=== PATIENT | female | born 1965 ===

== ENCOUNTER 2022-11-20 15:39 | Emergency (ER) | payer MEDICAID, OTHER, SELFPAY ==
--- NOTE | ~2022-11-20 | CT_ITS ---
EXAMINATION: CT HEAD WITHOUT CONTRAST CLINICAL INFORMATION: Headache COMPARISON: None available. TECHNIQUE: Contiguous axial imaging was performed from the skull base to vertex without intravenous administration of contrast. This CT examination was performed using dose optimization techniques as appropriate, variously including the following: *Automated exposure control *Adjustment of mA and/or kV according to patient size (this includes techniques or standardized protocols for targeted exams where dose is matched to indication/reason for exam; i.e. extremities or head) *Use of iterative reconstruction technique DLP: 584 mGy-cm FINDINGS: There is no midline shift. There is no mass effect. There is no hemorrhage. The basal cisterns appear patent. The posterior fossa is grossly within normal limits. There is no extra-axial collection. The phillips-white matter differentiation is maintained. The ventricles are within normal limits. Partially visualized sinuses are within normal limits. CT/CT head/brain wo IV con IMPRESSION: Negative acute noncontrast CT of the brain.
[2022-11-20 15:49] VITALS: BP 123/41; BP 141/82; PULSE 53; PULSE 68; RESP 18; TEMP 36.6; O2SAT 100; O2SAT 97; BMI 34.5
--- NOTE | 2022-11-20 17:06 | ED.HA ---
HPI - Headache General Chief Complaint: Headache Stated Complaint: MIGRAINE Time Seen by Provider: 11/20/22 17:05 Source: patient Mode of arrival: EMS Limitations: no limitations History of Present Illness HPI Narrative: 57-year-old female who presents emergency department for evaluation of headache that occurred while she was at work. 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 She states that the headache started gradually and overhead 10 minute. Became severe greater than 10/10. The pain was located behind her eyes. She describes the pain as a throbbing sensation. She had associated nausea and had 3 episodes of vomiting which did improve the pain. She had photophobia but no change in her vision. She states she was feeling very nauseated. The patient try to take a Motrin but was unable to keep the pill down. Patient does have a history of migraine headaches and she states that her migraines usually present as pain in the back of her head so this was an unusual headache for her. The patient was brought to emergency department by ambulance and was given Zofran 4 mg IV with improvement of her nausea. At the time my evaluation she states that her pain is 7/10. She denied fever, chills, rhinorrhea, sore throat, cough, chest pain, shortness of breath, dyspnea on exertion. Related Data Previous Rx's Medication Instructions Recorded metoclopramide HCl 10 mg tablet 10 mg PO Q6H PRN nausea and 11/20/22 (Reglan) vomiting #14 tabs Allergies Allergy/AdvReac Type Severity Reaction Status Date / Time diclofenac Allergy Hives Verified 11/20/22 16:06 Review of Systems Review of Systems: Yes all other systems are reviewed and are negative [facility] Past Medical History [facility] Narrative: Past medical history: Migraines. Surgical history: Appendectomy, cholecystectomy, right oophorectomy, small-bowel obstruction. Social history: She denies tobacco, alcohol and drug use. Social History Social History Alcohol intake: never Smoked in Last 30 Days: No Use of substances other than those prescribed or required for medical reasons: No Advance Directives: No Advance Directives Information Provided: No Patient : No Physical Exam Vital Signs: Vital Signs: Last Vital Signs Temp 97.9 F 11/20/22 15:49 Pulse 51 11/20/22 19:57 Resp 16 11/20/22 19:57 BP 124/56 L 11/20/22 19:57 Pulse Ox 98 11/20/22 19:57 O2 Del Method Room Air 11/20/22 19:57 BMI result Body Mass Index 34.5 Const: General: cooperative and no acute distress Orientation/consciousness: oriented to person and oriented to place Limitations: no limitations HEENT: Head: Yes normal to inspection, Yes normocephalic and Yes atraumatic Ears: external ears normal General nose exam: Normal external nose present Face and sinus: Yes normal facial exam Mouth: Normal oral and palatal mucosa present Throat: Yes posterior oropharynx normal Eyes: General: appearance normal, both eyes and all related structures Pupils: Equal, round and reactive pupils present Neck: Neck: Yes normal visual inspection, Yes no lymphadenopathy, Yes trachea midline and Yes supple Chest: Chest palpation & inspection: normal inspection of the chest and normal palpation of entire chest wall Resp: Effort & Inspection: normal respiratory effort and able to speak in complete sentences Auscultation: clear to auscultation bilaterally Cardio: Rate: regular rate Rhythm: regular rhythm Heart sounds: S1 normal heart sound present, S2 normal heart sound present and no murmurs GI: Inspection: Yes normal to inspection Palpation (GI): Soft to palpation, nontender and no guarding Auscultation: normal bowel sounds : General: Yes no CVA tenderness Back/Spine/Pelvis: Back: no CVA tenderness Skin: General skin exam: no rashes or lesions noted Neuro: General: oriented to person and oriented to place Cranial nerves: Yes CN's II-XII intact bilaterally and Yes Equal, round and reactive pupils present Cognition (Neuro): normal cognition Motor exam (neuro): 5/5 motor strength present throughout Extrem: General: Yes normal to inspection Psych: Appearance: grossly normal Speech and movement: Normal speech and movement present Affect: normal affect Attitude: cooperative Thought process: Normal thought process present Thought content: Normal thought content present Medications Administered Discontinued Medications Generic Name Dose Route Start Last Admin Trade Name Freq PRN Reason Stop Dose Admin Diphenhydramine HCl 50 mg 11/20/22 17:07 11/20/22 17:48 Diphenhydramine Hcl 50 Mg/Ml Vial IVPUSH 11/20/22 17:08 50 mg ONCE STA Administration Sodium Chloride 1,000 mls @ 999 mls/hr 11/20/22 17:07 11/20/22 19:30 Ns IV 11/20/22 18:07 Infused .Q1H1M STA Infusion Metoclopramide HCl 10 mg 11/20/22 17:07 11/20/22 17:51 Metoclopramide Hcl 10 Mg/2 Ml Vial IVPUSH 11/20/22 17:08 10 mg ONCE STA Administration Medical Decision Making Medical Decision Making [facility] Narrative: 57-year-old female with a history of migraine headaches who presents emergency department for evaluation of gradual onset of headache that occurred prior to being transported to the emergency department by ambulance. The headache is different from her usual migraine headache and she describes the pain is a throbbing sensation behind her eyes which was greater than 10/10, associated with nausea, vomiting, dizziness and photophobia. Patient did get improvement of her pain and nausea with Zofran 4 mg IV given by the paramedics. At the time my evaluation the patient's headache was 7/10 intensity. I ordered the following evaluation: CBC, CMP, PT/INR, PTT, CT scan of the brain without IV contrast. Patient's headache and nausea will be treated with Reglan 10 mg IV, Benadryl 50 mg IV, Toradol 15 mg IV. Patient also received normal saline IV x1 L. 2159: Patient's headache resolved with the above treatment Patient CT scan of the brain revealed no acute process which is reassuring Patient patient's headache is most likely due to a migraine variant. She was started on the following regimen: Reglan 10 mg, Benadryl 50 mg, Excedrin migraine 2 tabs every 6 hours as needed for pain She given printed and verbal instructions. She was given a work note. She was discharged home Differential Diagnosis Differential Diagnoses: The differential diagnosis associated with the presentation includes Differential diagnosis includes but is not limited to acute migraine headache, acute cerebral bleed, headache, temporal arteritis Admission/Observation Consideration of admission/observation: Escalation of care including admission/observation considered Lab Data My interpretation patient's laboratory evaluation is as follows: CBC, CMP 11/20/22 17:46 11/20/22 17:46 Labs: Lab Results 11/20/22 11/20/22 11/20/22 Range/Units 17:46 17:46 17:46 WBC 8.7 (4.8-10.8) X10*3/uL RBC 4.49 (4.20-5.50) X10*6/uL Hgb 12.7 (12.0-16.0) g/dl Hct 38.8 (37.0-47.0) % MCV 86.4 (80.0-98.0) fL MCH 28.3 (27.0-33.0) pg MCHC 32.7 (31.0-35.0) g/dl RDW 12.5 (11.0-16.0) % Plt Count 195 (160-400) X10*3/uL MPV 11.7 (9.4-12.3) fL Immature Gran % (Auto) 0.2 (0.0-0.4) % Neut % (Auto) 76.1 H (45-73) % Lymph % (Auto) 18.0 L (20-40) % [place] % (Auto) 5.2 (2-11) % Eos % (Auto) 0.2 (0-4) % Baso % (Auto) 0.3 (0-2) % Lymph # (Auto) 1.6 (1.2-4.9) X10*3/uL [place] # (Auto) 0.5 (0.1-1.2) X10*3/uL Eos # (Auto) 0.0 (0.0-0.4) X10*3/uL Baso # (Auto) 0.0 (0.0-0.2) X10*3/uL Abs Immat Gran (auto) 0.02 (0.00-0.03) X10*3/uL Absolute Neuts (auto) 6.6 (2.0-8.3) x10*3/uL Absolute Nucleated RBC 0.000 (0.0-0.012) X10*3/uL Nucleated RBC % (auto) 0.0 (0.0-0.2) /100WBC PT 11.9 (11.1-13.3) SEC INR 1.0 (0.9-1.1) APTT 28.8 (26.0-36.4) SEC Sodium 140 (135-145) mmol/L Potassium 4.1 (3.3-5.1) mmol/L Chloride 108 (96-108) mmol/L Carbon Dioxide 22 (22-29) mmol/L Anion Gap 14 (12-20) BUN 12 (9-16) mg/dL Creatinine 0.71 (0.5-1.4) mg/dL Estim Creat Clear Calc 100.8 Estimated GFR > 60 Random Glucose 106 (60-115) mg/dL Calcium 9.0 (8.4-10.2) mg/dL Total Bilirubin 0.5 (0.0-1.0) mg/dL AST 19 (5-31) U/L ALT 13 (0-31) U/L Alkaline Phosphatase 92 (39-117) U/L Total Protein 7.3 (6.5-8.0) g/dL Albumin 3.7 (3.5-5.0) g/dL Independent Interpretation I performed an independent interpretation of an: CT Scan Interpretation: My independent interpretation patient's CT scan of the brain is as follows: No acute process. Radiology Impression Discussion of test interpretation with radiology: I have reviewed the radiologist's reading. Radiologist Impression: CT head/brain wo IV con IMPRESSION: Negative acute noncontrast CT of the brain. Dictated By:Charlie Gr MD Discharge Plan Discharge Clinical Impression: Headache Patient Disposition: Home, Self-Care Instructions: Acute Headache (ED) Additional Instructions: Your blood work was normal pain The CT scan of your brain revealed no abnormalities which is very reassuring Your symptoms are consistent with a variation of your migraine syndrome I want you to take the following 3 medications together every 6 hours as needed for headache, nausea or vomiting. Reglan (metoclopramide) in 10 mg, 1 pill Benadryl 25 mg, 2 pills Excedrin migraine, 2 pills. After you take these medications, lie down in a dark quiet room and try to fall asleep. These medications will make you sleepy, do not drive or work after taking these medications. Follow-up with your doctor in 2 days. Please return to the emergency department if your symptoms get worse or if you develop any symptoms that are concerning to you. Please see the work note Prescriptions: New metoclopramide HCl [Reglan] 10 mg tablet 10 mg PO Q6H PRN (Reason: nausea and vomiting) Qty: 14 0RF Stand Alone Forms: Work/School Release
[2022-11-20] MEDS: diphenhydrAMINE HCL 50 MG/ML VIAL IVPUSH (17:48)
[2022-11-20] MEDS: Metoclopramide HCl 10 MG/2 ML VIAL IVPUSH (17:51)
[2022-11-20 17:54] LABS: MANUAL DIFF FLAG NO
[2022-11-20 17:58] LABS: Basophils Percent Auto 0.3 % (0-2); Eosinophils Percent Auto 0.2 % (0-4); Hematocrit 38.8 % (37.0-47.0); Hemoglobin 12.7 g/dl (12.0-16.0); Imm Gran Abs Auto 0.02 X10*3/uL (0.00-0.03); Imm Gran Pct Auto 0.2 % (0.0-0.4); Lymphocytes Absolute Auto 1.6 X10*3/uL (1.2-4.9); Mean Corpuscular HGB Conc 32.7 g/dl (31.0-35.0); Mean Corpuscular Hemoglobin 28.3 pg (27.0-33.0); Mean Corpuscular Volume 86.4 fL (80.0-98.0); Mean Platelet Volume 11.7 fL (9.4-12.3); Monocytes Absolute Auto 0.5 X10*3/uL (0.1-1.2); Monocytes Percent Auto 5.2 % (2-11); Neutrophils Absolute Auto 6.6 x10*3/uL (2.0-8.3); Neutrophils Percent Auto 76.1 % (45-73); Platelet Count 195 X10*3/uL (160-400); Red Blood Count 4.49 X10*6/uL (4.20-5.50); Red Cell Distribution Width 12.5 % (11.0-16.0); White Blood Count 8.7 X10*3/uL (4.8-10.8)
[2022-11-20 18:00] LABS: Prothrombin Time 11.9 SEC (11.1-13.3)
[2022-11-20] MEDS: 0.9 % Sodium Chloride 1,000 ML 999 ML IV (18:00)
[2022-11-20 18:02] LABS: Partial Thromboplastin Time 28.8 SEC (26.0-36.4)
[2022-11-20 18:08] LABS: Alanine Aminotransferase 13 U/L (0-31); Albumin Level 3.7 g/dL (3.5-5.0); Alkaline Phosphatase 92 U/L (39-117); Anion Gap 14 (12-20); Aspartate Amino Transferase 19 U/L (5-31); Bilirubin Total 0.5 mg/dL (0.0-1.0); Blood Urea Nitrogen 12 mg/dL (9-16); Carbon Dioxide 22 mmol/L (22-29); Chloride 108 mmol/L (96-108); Creatinine Clr Calc Pharmacy 100.8; Estimated Glomerular Filt Rate > 60; Glucose Random 106 mg/dL (60-115); Potassium 4.1 mmol/L (3.3-5.1); Sodium 140 mmol/L (135-145); Total Protein 7.3 g/dL (6.5-8.0)
--- NOTE | 2022-11-20 18:43 | PC.NURSE ---
Pt A&Ox4, Pt states sudden onset headache 8/10 pressure pain with N/V, dizziness and sensitivity to light. Pt reports feeling slightly better after 3 vomiting episodes prior to arrival. IV line placed, blood work collected and sent to lab.
[2022-11-20 19:57] VITALS: BP 124/56; PULSE 51; RESP 16; O2SAT 98
[2022-11-20 22:00] VITALS: BP 131/69; PULSE 43; RESP 16; TEMP 36.8; O2SAT 99
== END 2022-11-20 22:30 | disposition home or self-care (01) ==
PROVIDERS: Emergency Provider Emergency Medicine Emergency Medical Services
DX: R51.9 Headache, unspecified (principal)
CPT/HCPCS: 36415; 70450; 80053; 85025; 85610; 85730; 96361; 96374; 96375; 99284; 99285; J1200; J2765

== ENCOUNTER 2025-03-07 12:26 | Emergency (ER) | payer MEDICAID, OTHER, SELFPAY ==
--- OUTSIDE RECORDS SUMMARY | 2017-07-11 23:00 | XMS_ITS | Encounter Summary ---
Author Organization [facility] Address [address] [place] [address] Care Team Providers Care Research Staff Member Name Role Phone Unavailable Primary Care Provider Unavailabl e Encounter Details Date Type Department Care Team (Latest Contact Info) Description 07/12/2017 Hospital Encounter [facility] Ext Film [address] [place] [address] Encounter for screening mammogram for malignant neoplasm of breast Social History Tobacco Use Types Packs/Day Years Used Date Smoking Tobacco: Never Smokeless Tobacco: Never Alcohol Use Standard Drinks/Week Comments Never 0 (1 standard drink = 0.6 oz pur e alcohol) Comments No Sex and Gender Information Value Date Recorded Sex Assigned at Female 04/05/2024 8:11 AM EST Legal Sex Female 5:07 PM EST Gender Identity Female 04/05/2024 8:11 AM EST Sexual Orientation Straight 04/05/2024 8: 11 AM EST documented as of this encounter Plan of Treatment Upcoming Encounters Date Type Department Care Team (Late st Contact Info) Description 04/08/2025 7:30 AM EST Office Visit OBGYN Harpal Villegas [address] [place] [address] Mireya Jones, ORALIA [address] [place], [place] [address] 04/10/2025 9:30 AM EST Appointment [facility] Mamm[facility] - [place] [address] [place] [address] documented as of this encounter Procedures Procedure Name Priority Date/Time Associated Diagnosis Comments MG MAMMO DIGITAL SCREENING BILAT Routine 07/12/2017 2:22 PM EDT Encounter for screening mammogram for malignant neoplasm of breast documented in this encounter Results * MG Mammo Digital Screening bilat (07/12/2017 2:22 PM EDT) Narrative SCOTTIE_AF - 05/04/2024 2:23 PM EST This order has been auto-finalized and does not contain a result. Mireya Jones NP IMG BI PROCEDURES Final Result RISPACS_AF documented in this encounter Visit Diagnoses Diagnosis Encounter for screening mammogram for malignant neoplasm of breast documented in this encounter
--- OUTSIDE RECORDS SUMMARY | 2017-07-25 23:00 | XMS_ITS | Encounter Summary ---
Author Organization [facility] Address [address] [place] [address] Care Team Providers Care Line Maintenance Supervisor Name Role Phone Unavailable Primary Care Provider Unavailabl e Encounter Details Date Type Department Care Team (Latest Contact Info) Description 07/26/2017 Hospital Encounter [facility] Ext Film [address] [place] [address] Concern about breast cancer in female without diagnosis Social History Tobacco Use Types Packs/Day Years [...] Visit OBGYN Harpal Villegas [address] [place] [address] Mireya Jones, ORALIA [address] [place] [address] 04/10/2025 9:30 AM EST Appointment [facility] Mammography Harpal Villegas [address] [place] [address] documented as of this encounter Procedures Procedure Name Priority Date/Time Associated Diagnosis Comments MG MAMMO DIGITAL DIAGNOSTIC LEFT Routine 07/26/2017 2:24 PM EDT Concern about breast cancer in female without diagnosis documented in this encounter Results * MG Mammo Digital Diagnostic Left (07/26/2017 2:24 PM EDT) Narrative MARSHAYAYA_AF - 05/04/2024 2:24 PM EST This order has been auto-finalized and does not contain a result. Mireya Jones NP IMG BI PROCEDURES Final Result RISPACS_AF documented in this encounter Visit Diagnoses Diagnosis Concern about breast cancer in female without diagnosis documented in this encounter
--- OUTSIDE RECORDS SUMMARY | 2017-07-25 23:05 | XMS_ITS | Encounter Summary ---
Author Organization [facility] Address [address] [place] [address] Care Team Providers Care Clinical Lab Technologist Name Role Phone Unavailable Primary Care Provider Unavailabl e Encounter Details Date Type Department Care Team (Latest Contact Info) Description 07/26/2017 12:05 AM EDT Hospital Encounter [facility] Ext Film [address] [place] [address] Concern about breast cancer in [...] Visit OBGYN Harpal [place]legas [address] [place] [phone] Mireya Jones, ORALIA [address] [facility] [address] [place], [place] [address] 04/10/2025 9:30 AM EST Appointment [facility] Harpal Villegas [address] [place] [address] documented as of this encounter [...]
--- OUTSIDE RECORDS SUMMARY | 2017-07-31 23:00 | XMS_ITS | Encounter Summary ---
Author Organization [facility] Address [address] [place] [address] Care Team Providers Care Photoengraving Supervisor Name Role Phone Unavailable Primary Care Provider Unavailabl e Encounter Details Date Type Department Care Team (Latest Contact Info) Description 08/01/2017 Hospital Encounter [facility] Ext Film [address] [place] [address] Concern about breast cancer in [...] Visit OBGYN Harpal Villegas [address] [place] [address] Mireya Jones NP [address] [place] [address] 04/10/2025 9:30 AM EST Appointment [facility] Mammography Harpal Villegas [address] [place] [address] documented as of this encounter [...]
--- NOTE | ~2025-03-07 | XR_ITS ---
EXAMINATION: X-ray left hand X-ray left wrist CLINICAL INFORMATION: Fall. Right fifth finger pain. COMPARISON: None TECHNIQUE: Wrist 4 views. Hand 3 views. FINDINGS: Wrist: No fracture or dislocation. No suspicious bony lesion. No significant joint space narrowing or marginal osteophytes. No osseous erosion. No abnormal soft tissue calcification. Hand: Fourth digit: Small displaced ossification along the palmar aspect of the middle phalanx base, suspicious for a fracture. Mild soft tissue swelling. No dislocation. No significant joint space narrowing otherwise. No erosions. No abnormal soft tissue opacification. XR/XR hand LT min 3V IMPRESSION: Mildly displaced intra-articular fracture of the palmar aspect of the base of the fourth middle phalanx. Electronically signed by: Biju Logan MD 03/07/2025 01:21 PM [facility]
--- NOTE | ~2025-03-07 | XR_ITS ---
EXAMINATION: X-ray left hand X-ray left wrist CLINICAL INFORMATION: Fall. Right fifth finger pain. COMPARISON: None TECHNIQUE: Wrist 4 views. Hand 3 views. FINDINGS: Wrist: No fracture or dislocation. No suspicious bony lesion. No significant joint space narrowing or marginal osteophytes. No osseous erosion. No abnormal soft tissue calcification. Hand: Fourth digit: Small displaced ossification along the palmar aspect of the middle phalanx base, suspicious for a fracture. Mild soft tissue swelling. No dislocation. No significant joint space narrowing otherwise. No erosions. No abnormal soft tissue opacification. XR/XR wrist LT min 3V IMPRESSION: Mildly displaced intra-articular fracture of the palmar aspect of the base of the fourth middle phalanx. Electronically signed by: Biju Logan MD 03/07/2025 01:21 PM [facility]
--- NOTE | ~2025-03-07 | XR_ITS ---
EXAMINATION: XR CHEST CLINICAL INFORMATION: Chest pain COMPARISON: None available. TECHNIQUE: 2 views of the chest were obtained. FINDINGS: No significant abnormality is noted involving the heart, lungs, mediastinum, bony thorax or soft tissues. XR/XR chest 2V IMPRESSION: Unremarkable examination. Electronically signed by: Mirna Velez MD 03/07/2025 01:12 PM [facility]
--- NOTE | ~2025-03-07 | CT_ITS ---
CLINICAL HISTORY: Headache CT head without contrast Comparison: Head CT from 11/20/2022 Findings: No acute intracranial hemorrhage. No midline shift or hydrocephalus. No large arterial territorial infarction by CT. Fluid and mucosal thickening of the imaged paranasal sinuses. Right frontal sinuses diminutive. Imaged mastoid air cells are well aerated. No acute skull fracture. Dermal scalp calcifications noted. Previous cataract procedure changes noted. IMPRESSION: No acute intracranial abnormality by CT. This document has been electronically signed by: Demetrio Purdy MD on 03/07/2025 19:24:14
--- NOTE | 2025-03-07 12:28 | ECG_ITS ---
Test Reason : chest pain Blood Pressure : */* mmHG Vent. Rate : 71 BPM Atrial Rate : 71 BPM P-R Int : 138 ms QRS Dur : 78 ms QT Int : 406 ms P-R-T Axes : 36 26 8 degrees QTcB Int : 441 ms Normal sinus rhythm Low voltage QRS T wave abnormality, consider anterior ischemia Abnormal ECG No previous ECGs available Referred By: Raulito Holden Electronically Signed By: LUPIS SOLIS MD
[2025-03-07 12:37] VITALS: BP 150/70; PULSE 60; RESP 18; TEMP 36.3; O2SAT 98; BMI 30.2
--- NOTE | 2025-03-07 12:44 | ED.CHESTPAIN ---
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 Ramirez HPI narrative: 59-year-old female came in for evaluation of multiple symptoms. Patient sustained a mechanical fall 5 days ago patient landed on a rock causing left hand /left 4th finger pain, patient also landed on her chest had bruise after the fall that disappeared now, patient has been getting left-sided chest pain radiating to the left arm, patient is experiencing upper respiratory tract infection symptoms of cough, sneezing. Patient also is complaining of migraine headache that she had history of it, no photophobia, no neck stiffness, no weakness, no numbness, no nausea, no vomiting. Related Data Previous Rx's ?Medication ?Instructions ?Recorded metoclopramide HCl 10 mg tablet 10 mg PO Q6H PRN nausea and 11/20/22 (Reglan) vomiting #14 tabs Allergies Allergy/AdvReac Type Severity Reaction Status Date / Time diclofenac Allergy Hives Verified 03/07/25 12:39 Review of Systems Review of Systems: All other systems are reviewed and are negative Constitutional: Reports as per HPI and Reports no additional constitutional complaints Eyes: Reports as per HPI and Reports no additional eye complaints Reports system reviewed and no additional complaints, except as documented Cardiovascular: Reports as per HPI and Reports no additional cardiovascular complaints Respiratory: Reports as per HPI and Reports no additional respiratory complaints Gastrointestinal: Reports as per HPI and Reports no additional gastrointestinal complaints Genitourinary: Reports no additional female genitourinary complaints Musculoskeletal: Reports no additional musculoskeletal complaints Skin/Breast: Reports system reviewed and no additional complaints, except as docu Psychiatric: Reports no additional psychiatric complaints Endocrine: Reports no additional endocrine complaints Hematologic/Lymphatic: Reports no additional hematologic/lymphatic complaints Allergic/Immunologic: Reports no additional allergic/immunologic complaints Reports system reviewed and no additional complaints, except as documented and Reports Abnormal speech present [facility] Social History Social History Alcohol intake: never Physical Exam Vital Signs: Vital Signs: Last Vital Signs Temp 97.7 F 03/07/25 19:48 Pulse 49 L 03/07/25 19:48 Resp 18 03/07/25 19:48 BP 126/60 03/07/25 19:48 Pulse Ox 99 03/07/25 19:48 O2 Del Method Room Air 03/07/25 19:48 BMI result Body Mass Index 30.2 Vital signs have been reviewed and appear to be correct. Blood pressure elevated. Heart rate normal. Respiratory rate normal. Temperature normal. Oxygen saturation normal. Appearance: Alert. Oriented X3. No acute distress. Head: Normal external exam. Normocephalic. Atraumatic. No Dubose signs noted. No raccoon eyes noted Eyes: PERRLA. EOMI. Conjunctiva and sclera normal. Eyelids normal. ENT: TM's Normal. Pharynx normal. Uvula midline. Moist mucous membranes. No trismus noted. No drooling noted. No muffled voice noted. Neck: Normal inspection. Neck supple. FROM. No adenopathy. Thyroid Normal. No meningeal signs. No neck mass noted. CVS: Normal heart rate and rhythm. Heart sound normal. No murmurs noted. Pulses normal throughout. Respiratory: No respiratory distress. Painless inspiration. Breath sounds normal. No wheezes/rales/rhonchi noted. Reproducible tenderness to the left chest wall with percussion, no step-off, no deformity. No accessory muscle usage noted or decreased air movement noted. Abdomen: Soft and nontender. Bowel sounds normal in all 4 quadrants. No distention noted. No organomegaly noted. No visible injury noted. Back: No CVA tenderness. Full range of motion noted. Skin: Skin warm and dry. Normal skin color. Normal skin turgor. No rashes/lesions/lacerations noted. Extremities: No lower extremity edema. Extremities exhibit normal range of motion. Extremities nontender. Neuro: Oriented X 3. Cranial nerve exam: II-XII are grossly intact No motor deficit. No sensory deficit. Reflexes normal. Appearance: Alert. Oriented X3. No acute distress. Head: Normal external exam. Normocephalic. Atraumatic. No Dubose signs noted. No raccoon eyes noted Eyes: PERRLA. EOMI. Conjunctiva and sclera normal. Eyelids normal. ENT: TM's Normal. Pharynx normal. Uvula midline. Moist mucous membranes. No trismus noted. No drooling noted. No muffled voice noted. Neck: Normal inspection. Neck supple. FROM. No adenopathy. Thyroid Normal. No meningeal signs. No neck mass noted. CVS: Normal heart rate and rhythm. Heart sound normal. No murmurs noted. Pulses normal throughout. Respiratory: No respiratory distress. Painless inspiration. Breath sounds normal. No wheezes/rales/rhonchi noted. Chest nontender. No accessory muscle usage noted or decreased air movement noted. Abdomen: Soft and nontender. Bowel sounds normal in all 4 quadrants. No distention noted. No organomegaly noted. No visible injury noted. Back: No CVA tenderness. Full range of motion noted. Skin: Skin warm and dry. Normal skin color. Normal skin turgor. No rashes/lesions/lacerations noted. Extremities: Left hand exam: Swelling of the left 4th finger with tenderness to palpation no palpable step-off or deformity. Neuro: Mental status: Normal attention, orientation, memory, and affect. Cranial nerves: Pupils are equal, round and reactive to light, EOMI, visual medeiros are fall, face is symmetric, facial sensations are normal. Motor examination normal muscle tone, strength to 4 extremities. DTR are +2, planter's are flexor. Sensory exam; normal coordination, no ataxia, gait stable. Cerebellar exam: [id number] and [id number] is normal. Extrapyramidal system: No tremors, no rigidity with normal facial expressions. Pronator drift not present Course Course Course Narrative: RME: 59 yold female presents to the ED For left sided chest pain started yesterday and left ring finger pain after falling 5 days ago falling unto chest. Patietn also states migraine exacerbation. Reevaluation(s) Reevaluation #1: Chest wall pain after a fall, unremarkable cardiac workup. Left 4th finger fracture patient is already using her own finger splint will discharge to follow-up with orthopedic and Pelvic /migraine completely improved no headache. EKG showing heart rate of 71 on the vital sign patient was bradycardic which likely not an accurate treating. Time: 19:05 Medications Administered Discontinued Medications Generic Name Dose Route Start Last Admin Trade Name Freq PRN Reason Stop Dose Admin Diphenhydramine HCl 25 mg 03/07/25 17:16 03/07/25 17:29 Diphenhydramine Hcl 50 Mg/Ml Vial IVPUSH 03/07/25 17:17 25 mg ONCE ONE Administration Sodium Chloride 1,000 mls @ 999 mls/hr 03/07/25 17:16 03/07/25 18:52 Ns IV 03/07/25 18:16 Infused .Q1H1M ONE Infusion Ketorolac Tromethamine 15 mg 03/07/25 17:19 03/07/25 17:46 Ketorolac Tromethamine 15 Mg/Ml Vial IVPUSH 03/07/25 17:20 15 mg ONCE ONE Administration Ondansetron HCl 4 mg 03/07/25 17:16 03/07/25 17:29 Ondansetron Hcl 4 Mg/2 Ml Vial IVPUSH 03/07/25 17:17 4 mg ONCE ONE Administration Medical Decision Making Differential Diagnosis Differential Diagnoses: The differential diagnosis associated with the presentation includes ( ACS, chest wall contusion, pneumonia, pneumothorax, pleural effusion,) Admission/Observation Consideration of admission/observation: Escalation of care including admission/observation considered Lab Data MDM Lab Attestation statement: I reviewed the patient's lab results. 03/07/25 13:36 03/07/25 13:36 Labs: Lab Results 03/07/25 03/07/25 Range/Units 13:36 17:27 WBC 6.8 (4.8-10.8) X10*3/uL RBC 4.77 (4.20-5.50) X10*6/uL Hgb 13.8 (12.0-16.0) g/dl Hct 41.3 (37.0-47.0) % MCV 86.6 (80.0-98.0) fL MCH 28.9 (27.0-33.0) pg MCHC 33.4 (31.0-35.0) g/dl RDW 12.6 (11.0-16.0) % Plt Count 218 (160-400) X10*3/uL MPV 11.9 (9.4-12.3) fL Immature Gran % (Auto) 0.3 (0.0-0.4) % Neut % (Auto) 64.3 (45-73) % Lymph % (Auto) 26.9 (20-40) % [place] % (Auto) 6.6 (2-11) % Eos % (Auto) 1.3 (0-4) % Baso % (Auto) 0.6 (0-2) % Lymph # (Auto) 1.8 (1.2-4.9) X10*3/uL [place] # (Auto) 0.5 (0.1-1.2) X10*3/uL Eos # (Auto) 0.1 (0.0-0.4) X10*3/uL Baso # (Auto) 0.0 (0.0-0.2) X10*3/uL Abs Immat Gran (auto) 0.02 (0.00-0.03) X10*3/uL Absolute Neuts (auto) 4.4 (2.0-8.3) x10*3/uL Absolute Nucleated RBC 0.000 (0.0-0.012) X10*3/uL Nucleated RBC % (auto) 0.0 (0.0-0.2) /100WBC PT 11.9 (11.2-13.5) SEC INR 1.0 (0.9-1.1) APTT 29.2 (26.7-34.1) SEC D-Dimer High Sensitivty 169 NG/ML Sodium 141 (135-145) mmol/L Potassium 4.3 (3.3-5.1) mmol/L Chloride 111 H (96-108) mmol/L Carbon Dioxide 24 (22-29) mmol/L Anion Gap 10 L (12-20) BUN 11 (9-16) mg/dL Creatinine 0.73 (0.5-1.4) mg/dL Estim Creat Clear Calc 102.3 Estimated GFR > 60 Random Glucose 125 H (60-115) mg/dL Calcium 8.7 (8.4-10.2) mg/dL Total Bilirubin 0.3 (0.0-1.0) mg/dL AST 20 (5-31) U/L ALT 20 (0-31) U/L Alkaline Phosphatase 114 (39-117) U/L Troponin I High Sens < 2.7 < 2.7 (<3.5-17.0) ng/L NT-Pro-B Natriuret Pep 159.8 (<300) pg/mL Total Protein 7.5 (6.5-8.0) g/dL Albumin 4.0 (3.5-5.0) g/dL Independent Interpretation I performed an independent interpretation of an: Plain X-Ray ( chest: No acute intrathoracic pathology. / left hand and left wrist :Mildly displaced intra-articular fracture of the palmar aspect of the base of the fourth middle phalanx. ) Radiology Impression Discussion of test interpretation with radiology: I have reviewed the radiologist's reading. Discharge Plan Discharge Clinical Impression: Chest pain, Migraine, Finger fracture, left Patient Disposition: Home, Self-Care Instructions: Finger Fracture (ED), Migraine Headache (ED) Prescriptions: No Action metoclopramide HCl [Reglan] 10 mg tablet 10 mg PO Q6H PRN (Reason: nausea and vomiting) Qty: 14 0RF Referrals: Vlad Oliva MD [Physician, Vascular Surgery] Jenna Thurston MD [Physician, Hand Surgery] Stand Alone Forms: Work/School Release Interventions: ED Discharge Assessment Last Done: 03/07/25 19:48 Discharge Date/Time: 03/07/25 19:49 Print Language: Moldovan
[2025-03-07 13:41] LABS: MANUAL DIFF FLAG NO
[2025-03-07 13:45] LABS: Hematocrit 41.3 % (37.0-47.0); Hemoglobin 13.8 g/dl (12.0-16.0); Imm Gran Abs Auto 0.02 X10*3/uL (0.00-0.03); Imm Gran Pct Auto 0.3 % (0.0-0.4); Lymphocytes Absolute Auto 1.8 X10*3/uL (1.2-4.9); Mean Corpuscular HGB Conc 33.4 g/dl (31.0-35.0); Mean Corpuscular Hemoglobin 28.9 pg (27.0-33.0); Mean Corpuscular Volume 86.6 fL (80.0-98.0); NRBC Abs Auto 0.000 X10*3/uL (0.0-0.012); NRBC Pct Auto 0.0 /100WBC (0.0-0.2); Platelet Count 218 X10*3/uL (160-400); Red Blood Count 4.77 X10*6/uL (4.20-5.50); White Blood Count 6.8 X10*3/uL (4.8-10.8)
[2025-03-07 13:53] LABS: INTERNATIONAL NORM RATIO 1.0 (0.9-1.1); Prothrombin Time 11.9 SEC (11.2-13.5)
[2025-03-07 13:56] LABS: Partial Thromboplastin Time 29.2 SEC (26.7-34.1)
[2025-03-07 14:01] LABS: Alanine Aminotransferase 20 U/L (0-31); Albumin Level 4.0 g/dL (3.5-5.0); Alkaline Phosphatase 114 U/L (39-117); Anion Gap 10 (12-20); Aspartate Amino Transferase 20 U/L (5-31); Blood Urea Nitrogen 11 mg/dL (9-16); Calcium 8.7 mg/dL (8.4-10.2); Carbon Dioxide 24 mmol/L (22-29); Chloride 111 mmol/L (96-108); Creatinine Clr Calc Pharmacy 102.3; Estimated Glomerular Filt Rate > 60; Potassium 4.3 mmol/L (3.3-5.1); Sodium 141 mmol/L (135-145); Total Protein 7.5 g/dL (6.5-8.0)
[2025-03-07 14:08] LABS: NT Pro B Type Natriuretic Pept 159.8 pg/mL (<300)
[2025-03-07 14:14] LABS: Troponin-I High Sensitivity < 2.7 ng/L (<3.5-17.0)
[2025-03-07 17:21] VITALS: BP 121/69; PULSE 48; RESP 16; O2SAT 100
[2025-03-07 17:27] LABS: D Dimer High Sensitivity 169 NG/ML
[2025-03-07 17:57] LABS: Troponin-I High Sensitivity < 2.7 ng/L (<3.5-17.0)
--- OUTSIDE RECORDS SUMMARY | 2025-03-07 18:53 | XMS_ITS | Encounter Summary ---
Author Organization [facility] Address [address] [place] [address] Care Team Providers Care Lithographic Proofer Name Role Phone Unknown Primary Care Provider [phone] Encounter Details Date Type Department Care Team (Late st Contact Info) Description 10/22/2020 Scanned Document [facility] EMERGENCY MED SCAN Emergency Medicine, Scan Social History Tobacco Use Types Packs/Day Years Used Date Smoking Tobacco: Never Assessed Comments Unknown Sex and Gender Information Value Date Recorded Sex Assigned at Not on file Legal Sex Female 11:19 AM EDT Gender Identity Not on file Sexual Orientation Not on file documented as of this encounter Plan of Treatment Not on file documented as of this encounter Visit Diagnoses Not on filedocumented in this encounter Care Teams Lithographic Proofer Relationship Specialty Start Date End Date Unknown Unknow Provider Address PCP - General 04/25/21 documented as of this encounter
--- OUTSIDE RECORDS SUMMARY | 2025-03-07 18:53 | XMS_ITS | Clinical Summary ---
Author Organization [address] [place] Address [address] [place] [address] Phone Care Team Providers Care Brush Clearing Laborer Name Role Phone Apple Marcum MD Primary Care P rovider Allergies Active Allergy Reactions Criticality Noted Date Comments Diclofenac Hives,Swelling Medium 10/22/2020 Dyclonine Swelling 12/24/2022 Medications No known medications Active Problems Problem Noted Date Diagnosed Date Encounter for gynecological examination without abnormal finding 04/03/2024 Class 1 obesity due to exces s calories without serious comorbidity with body mass index (BMI) of 34.0 to 34.9 in adult 04/03/2024 Surgical menopause 04/03/2024 Chronic bilateral thoracic back pain 01/06/2024 Varicose veins of leg with pain, bilateral 01/05 Chronic constipation 12/24/2022 Overview (04/03/2024): S/p partial obstruction 2018 Migraine without aura and wi thout status migrainosus, not intractable 12/24/2022 Immunizations Immunization Administration Dates Next Due HepB-CpG (Heplisav-B) 18yo and older 06/23/2023, 03/09/2023 Influenza Quadrivalent, 0.5m l, preservative free (Fluarix; FluLaval; Fluzone) ages 6mo and older (Afluria) 3yo and older 06/23/2023,05/14/2021 Influenza trivalent, recombi nant, 0.5mL, preservative free (Flublok) 9yo and older 01/06/2024 Pfizer (ages 12 & older) MARILYN S-CoV-2 COVID-19, mRNA, LNP-S, gloria-sucrose, preservative free 03/16/2021,08/12/2020,07/20/2020 Tdap Tetanus diptheria acell ular pertussis (Boostrix; Adacel) 7yo and older 12/24/2022 Zoster recombinant (Shingrix ) 19yo and older 02/23/2023,12/24/2022 Family History Medical History Relation Name Comments Breast cancer Mother had mastitis Relation Name Status Comments Mother Social History Tobacco Use Types Packs/Day Years Used Date Smoking Tobacco: Never Smokeless Tobacco: Never Tobacco Cessation:Counseling Given: No Alcohol Use Standard Drinks/Week Comments Never 0 (1 standard drink = 0.6 oz pur e alcohol) Comments No Sex and Gender Information Value Date Recorded Sex Assigned at Female 04/05/2024 8:11 AM EST Legal Sex Female 5:07 PM EST Gender Identity Female 04/05/2024 8:11 AM EST Sexual Orientation Straight 04/05/2024 8: 11 AM EST Obstetrics History Para Term AB IAB SAB Ectopic Multiple Livin g Live Births 4 3 2 1 1 2 2 Date Outcome GA Total Labor Labor/2nd/3rd Weight Sex Type Anes PTL Rachelle A1 A5 Name Clin 1985 Term F Vag-S pont Living 1986 Term F Vag-S pont Living 1989 Ectopic 1992 M CS-LT ranv Last Filed Vital Signs Vital Sign Reading Time Taken Comments Blood Pressure 115/70 04/03/2024 7:37 AM EST Pulse 59 04/03/2024 7:27 AM EST Temperature - - Respiratory Rate - - Oxygen Saturation - - Inhaled Oxygen Concentration - - Weight 93.4 kg (206 lb) 04/05/2024 8:43 AM EST Height 167.6 cm (5' 6 ) 04/05/2024 8:43 AM EST Body Mass Index 33.25 04/05/2024 8:43 AM EST Plan of Treatment Upcoming Encounters Date Type Department Care Team (Late st Contact Info) Description 04/08/2025 7:30 AM EST Office Visit [facility] [place] [address] [place] [address] Mireya Jones NP [address] [place] [address] 04/10/2025 9:30 AM EST [facility] [address] [place] [phone] Health Maintenance Due Date Last Done Comments Colorectal Cancer Screening: Colonoscopy 1966 Cervical Cancer Screening: Pap Smear 09/02/1987 Pneumococcal Vaccine: 50+ Years (1 of 1 - PCV) 2016 HIV Screening 03/12/2024 Social Influencers of Health Screening 03/12/2024 Depression Screening 04/25/2024 COVID-19 Vaccine ( season) 2024 06/23/2023, 03/16/2021, 08/12/2020, Additional history exists Influenza Vaccine (#1) 2024 , 06/23/2023, 05/14/2021 Breast Cancer Screening 04/05/2026 04/05/20 24, 07/26/2017, 07/12/2017 Cholesterol Screening (Lipid Panel) 12/25/2027 12/24/2022 DTaP,Tdap,and Td Vaccines (2 - Td or Tdap) 12/24/2032 12/24/2022 RSV Immunization Adult Patients (1 - 1-dose 75+ series) 2041 Hepatitis C Screening Completed 12/24/2022 Zoster Vaccines Completed 02/23/2023, 12/24/2022 Hepatitis B Vaccines Completed 06/23/2023, 03/09/20 23 HIB Vaccines Aged Out No longer eligi ble based on patient's age to complete this topic HPV Vaccines Aged Out No longer eligi ble based on patient's age to complete this topic Hepatitis A Vaccines Aged Out No long er eligible based on patient's age to complete this topic IPV Vaccines Aged Out No longer eligi ble based on patient's age to complete this topic MMR Vaccines Aged Out No longer eligi ble based on patient's age to complete this topic Meningococcal ACWY Vaccine Aged Out N o longer eligible based on patient's age to complete this topic Meningococcal B Vaccine Aged Out No l onger eligible based on patient's age to complete this topic RSV Immunization Patients Under 20 months Aged Out No longer eligible based on patient's age to complete this topic Varicella Vaccines Aged Out No longer eligible based on patient's age to complete this topic Procedures Procedure Name Priority Date/Time Associated Diagnosis Comments MG MAMMO DIGITAL SCREENING W CHELY BILAT Routine 04/05/2024 8:48 AM EST Breast cancer screening by mammogram from Last 3 Months or Most Recently Relevant to Health Maintenance Results * MG Mammo Digital Screening w Chely bilat (04/05/2024 8:48 AM EST) Anatomical Region Laterality Modality Breast Bilateral Mammography 05/01/2024 8:11 AM EST Impressions 05/01/2024 8:16 AM EST No mammographic evidence of malignancy. BI-RADS CATEGORY: 2 - BENIGN RECOMMENDATION: Screening bilateral mammogram is recommended in 1 year. The patient will receive a lay summary regarding their personal breast density per current federal guidelines. Exam Location: [facility], [address] [place] [address], [facility], . Report reviewed and signed by : Dr. Juan Hernandez on 05/01/2024 8:16 AM. Workstation Name - [id number] -------- FINAL REPORT -------- Dictated By: Juan Hernandez Dictated Date: 05/01/2024 08:11 ET Assigned Physician: Juan Hernandez Reviewed and Electronically Signed By: Juan Hernandez Signed Date: 05/01/2024 08:16 ET Workstation ID: [id number] Transcribed By: Self Edit Transcribed Date: 05/01/2024 08:11 ET Narrative 05/01/2024 8:16 AM EST EXAM: MG MAMMO DIGITAL SCREENING W CHELY BILAT EXAM DATE: 04/05/2024 8:15 AM HISTORY: Screening. Personal history of benign left breast biopsy. COMPARISON: 07/12/2017 TECHNIQUE: Bilateral digital mammography using tomosynthesis technique was performed in the standard CC and MLO projections. Computer-aided detection was utilized in the interpretation of this examination. TISSUE DENSITY: B - There are scattered areas of fibroglandular density. FINDINGS: Biopsy marker, lower central left breast, middle depth. No suspicious masses, grouped microcalcifications, or areas of architectural distortion are seen. Procedure Note Juan Hernandez MD - 05/01/2024 EXAM: MG MAMMO DIGITAL SCREENING W CHELY BILAT EXAM DATE: 04/05/2024 8:15 AM HISTORY: Screening. Personal history of benign left breast biopsy. COMPARISON: 07/12/2017 TECHNIQUE: Bilateral digital mammography using tomosynthesis technique was performedin the standard CC and MLO projections. Computer-aided detection was utilized in the interpretation of thisexamination. TISSUE DENSITY: B - There are scattered areas of fibroglandular density. FINDINGS: Biopsy marker, lower central left breast, middle depth. No suspicious masses, grouped microcalcifications, or areas ofarchitectural distortion are seen. IMPRESSION: No mammographic evidence of malignancy. BI-RADS CATEGORY: 2 - BENIGN RECOMMENDATION: Screening bilateral mammogram is recommended in 1 year. The patient will receive a lay summary regarding their personal breastdensity per current federal guidelines. Exam Location: [facility], [address] [place] [address], [facility], . Report reviewed and signed by : Dr. Juan Hernandez on 05/01/2024 8:16 AM.Workstation Name - [id number] -------- FINAL REPORT -------- Dictated By: Juan Hernandez Dictated Date: 05/01/2024 08:11 ET Assigned Physician: Juan Hernandez Reviewed and Electronically Signed By: Juan Hernandez Signed Date: 05/01/2024 08:16 ET Workstation ID: [id number] Transcribed By: Self Edit Transcribed Date: 05/01/2024 08:11 ET us Mireya Jones NP IMG BI PROCEDURES Final Result from Last 3 Months or Most Recently Relevant to Health Maintenance [place] [address] [address] Care Teams Brush Clearing Laborer Relationship Specialty Start Date End Date Apple Marcum MD [address] [place] [address] PCP - General Family Medicine 10/22/20
--- OUTSIDE RECORDS SUMMARY | 2025-03-07 18:53 | XMS_ITS | Clinical Summary ---
Author Organization [facility] Address [address] [place] [address] Care Team Providers Care Eligibility Counselor Name Role Phone Fran Escalera MD Primary Care Provider Source Comments PLEASE NOTE, if this patient is a minor, it may be UNLAWFUL to discuss sensitive information that is contained in these records (such as FAMILY PLANNING, MENTAL HEALTH or SUBSTANCE ABUSE) with the minor patient's parent or other person without the patient's specific authorization.[facility] Allergies Active Allergy Reactions Criticality Noted Date Comments Diclofenac Hives,Swelling Medium 10/22/2020 Dyclonine Swelling 12/24/2022 Medications acetaminophen (TYLENOL) 500 mg tablet Take 1 Tablet by mouth every 6 (six) hours as needed for pain 90 Tablet 1 5 Active cyclobenzaprin e (FLEXERIL) 5 mg tablet Take 1 Tablet by mouth 3 (three) times daily as needed for muscle spasms 90 Tablet 1 5 Active MISCELLANEOUS MEDICAL SUPPLY MISC by miscellaneous route once daily Bilat carpal tunnel wrist braces. Dx bilat wrist pain. Length of need 99 months 2 Each 1 5 Active Active Problems Problem Noted Date Diagnosed Date Class 1 obesity due to exces s calories without serious comorbidity with body mass index (BMI) of 34.0 to 34.9 in adult 04/03/2024 Varicose veins of leg with pain, bilateral 01/05 Chronic bilateral thoracic back pain 01/06/2024 Migraine without aura and wi thout status migrainosus, not intractable 12/24/2022 Chronic constipation 12/24/2022 Overview (12/24/2022): S/p partial obstruction 2018 Resolved Problems Problem Noted Date Diagnosed Date Resolved Date Class 2 obesity due to exces s calories without serious comorbidity with body mass index (BMI) of 36.0 to 36.9 in adult 12/24/2022 Immunizations Immunization Administration Dates Next Due Flu, Preservative Free 06/23/2023,05/14/2021 Hep B,adult,adjuvanted (HEPLISAV) 06/23/2023, Influenza (FLUBLOK),recombinant,injectable,preservati ve Free 01/06/2024 Pfizer COVID vaccine, COMIRN ATY, phillips cap, 12+ 03/16/2021,08/12/2020,07/20/2020 Pfizer COVID-19 (Comirnaty), Mrna, Lnp-s, Pf, Óscar-sucrose, 30 Mcg/0.3 Ml, 12yr+ 05/18/2024,06/23/2023 TDAP 12/24/2022 ZOSTER VACCINE, RECOMBINANT (SHINGRIX) ,12/24/2022 Social History Tobacco Use Types Packs/Day Years Used Date Smoking Tobacco: Never Passive Smoke Exposure: Never Smokeless Tobacco: Never Tobacco Cessation:Counseling Given: Not Answered Alcohol Use Standard Drinks/Week Comments Never 0 (1 standard drink = 0.6 oz pur e alcohol) Social Connections Answer Date Recorded How often do you feel lonely or isolated from th ose around you? 1 05/18/2024 Financial Resource Strain Answer Date R ecorded Hard to pay for: Food 1 05/18/2024 Stress Answer Date Recorded Do you feel these kinds of stress these days? 1 05/18/2024 Physical Activity Answer Date Recorded Physical Activity 0 12/24/2022 Food Insecurity Answer Date Recorded Hard to pay for: Food 1 05/18/2024 Transportation Needs Answer Date Record ed Hard to pay for: Transportation 05/18/2024 Housing Stability Answer Date Recorded Hard to pay for: Rent/Mortgage payment 05/18/2024 Safety and Environment Answer Date Angelo rded Safety 0 12/24/2022 Utilities Answer Date Recorded Hard to pay for: Utilities 1 05/18 Employment Answer Date Recorded Stress 0 01/05/2024 Comments No Sex and Gender Information Value Date Recorded Sex Assigned at Female 10/06/2022 8:33 AM PDT Legal Sex Female 8:30 AM PDT Gender Identity Female 10/06/2022 8:33 AM PDT Sexual Orientation Straight 10/06/2022 8: 33 AM PDT Last Filed Vital Signs Vital Sign Reading Time Taken Comments Blood Pressure 118/70 05/18/2024 9:59 AM EST Pulse 58 05/18/2024 9:59 AM EST Temperature 36.6 C (97.9 F) 05/18/2024 9:59 AM EST Respiratory Rate 18 05/18/2024 9:59 AM EST Oxygen Saturation 98% 05/18/2024 9:59 AM EST Inhaled Oxygen Concentration - - Weight 95.5 kg (210 lb 9.6 oz) 05/18/2024 9:59 A M EST Height 166 cm (5' 5.35 ) 05/18/2024 9:59 AM EST Body Mass Index 34.67 05/18/2024 9:59 AM EST Plan of Treatment Health Maintenance Due Date Last Done Comments CT Colonography 09/02/2011 FIT/gFOBT 09/02/2011 Fecal DNA 09/02/2011 Flexible Sigmoidoscopy 09/02/2011 Imm-Pneumococcal 50+ (1 of 1 - PCV) 2016 Dental BW 02/21/2024 02/18/2023 Dental Examination 02/21/2024 02/18/2023 Dental Perio Charting 02/21/2024 02/18/2023 Dental Prophy 08/26/2024 08/25/2023, 02/22/2023 [id number] ( season) 2024 05/18/2024, 06/23/2023, 04/29/2022, Additional history exists Imm-Influenza (#1) 2024 01/06/2024, 0 06/23/2023, 05/14/2021 Annual Wellness (Adult): Ind icated (All Coverage) 05/18/2025 05/18/2024, 06/21/2023, 12/24/2022 Anxiety Screening 05/18/2025 05/18/2024 Hypertension Screening (#1) 05/18/2025 Tobacco Screening 05/18/2025 05/18/2024, 12/24/2022 Diabetes Screening 12/24/2025 12/24/2022, 12/24/2022 Lipid Screening 12/24/2025 12/24/2022 Breast Cancer Screening (Mammogram) 04/05/2026 04/05/2024, 01/17/2023 Colonoscopy 12/08/2027 12/07/2017 Colorectal Cancer Screening 12/08/2027 Dental FMX/Pano 02/21/2028 02/18/2023 Imm-DTaP/Tdap/Td (2 - Td or Tdap) 12/24/2032 023 HIV Screening Completed 12/24/2022 Hepatitis C Screening Completed 12/24/2022 Imm-Zoster, Recombinant Completed 02/23/2023, 12/24 Imm-Hepatitis B Completed 06/23/2023, 03/09/2023 Alcohol and Drug Screen Completed 05/18/19, 01/06/2024, 07/01/2023, Additional history exists Depression Annual Screen Completed 05/18/2024 Procedures Procedure Name Priority Date/Time Associated Diagnosis Comments Full PROPHYLAXIS - ADULT Routine 08/25/2023 10:20 AM EDT Encounter for dental examination Full INTRAORAL - COMP SERIES OF RADIOGRAPHIC IMAGES Routine 02/18/2023 3:00 PM EDT Caries of enamel (incipient) Caries Full COMP ORAL EVALUATION - NEW/ESTABLISHED PATIENT Routine 02/18/2023 3:00 PM EDT Caries of enamel (incipient) Caries MA DIGITAL SCREENING MAMMO BILAT W CAD Routine 01/17/2023 3:00 AM EDT Breast cancer screening by mammogram HIV 1/2 AG & AB W/RFLX (4TH GEN) Routine 12/24/2022 12:58 PM EDT Routine general medical examination at a health care facility HEPATITIS C AB W/RFLX HCV RNA, QT, RT PCR Routine 12/24/2022 12:58 PM EDT Routine general medical examination at a health care facility COMPREHENSIVE METABOLIC PANEL Routine 12/24/2022 12:58 PM EDT Routine general medical examination at a health care facility LIPIDS W RFLX TO DIRECT LDL Routine 12/24/2022 12:58 PM EDT Routine general medical examination at a health care facility from Last 3 Months or Most Recently Relevant to Health Maintenance Results * Mammo Bilat Screening (01/17/2023 3:00 AM EDT) 01/17/2023 3:00 AM EDT Fran Escalera MD IMG MAMMO Edited Resul t - Final * Hep C Antibody with Reflex HCV RNA (12/24/2022 12:58 PM EDT) HEPATITIS C ANTIBODY NON-REACT ARSENIO NON-REACT ARSENIO [facility] Comment: HCV antibody was non-reactive. There is no laboratory evidence of HCV infection. In most cases, no further action is required. However, if recent HCV exposure is suspected, a test for HCV RNA (test code 98033) is suggested. For additional information please refer to http://education.Cubito/faq/VGK78t8 (This link is being provided for informational/ educational purposes only.) Blood Blood / Unknown 12/24/2022 1 2:58 PM EDT 12/24/2022 12:59 PM EDT Narrative [facility] - 12/25/2022 6:10 AM EDT FASTING:UNKNOWN Fran Escalera MD LAB - BLOOD DRAW Final Resul t [facility] [address] [place] [id number], [facility] [address] [phone] * HIV Ag & Ab with Reflex Western Blot (12/24/2022 12:58 PM EDT) HIV AG/AB, 4TH GEN NON-REAC TIVE NON-REAC TIVE [facility] Comment: HIV-1 antigen and HIV-1/HIV-2 antibodies were not detected. There is no laboratory evidence of HIV infection. PLEASE NOTE: This information has been disclosed to you from records whose confidentiality may be protected by state law. If your state requires such protection, then the state law prohibits you from making any further disclosure of the information without the specific written consent of the person to whom it pertains, or as otherwise permitted by law. A general authorization for the release of medical or other information is NOT sufficient for this purpose. For additional information please refer to http://[employer].Cubito/faq/JFI906 (This link is being provided for informational/ educational purposes only.) The performance of this assay has not been clinically validated in patients less than 2 years old. Blood Blood / Unknown 12/24/2022 1 2:58 PM EDT 12/24/2022 12:59 PM EDT Narrative [facility] - 12/25/2022 6:10 AM EDT FASTING:UNKNOWN Fran Escalera MD LAB - BLOOD DRAW Final Resul t [facility] [address] [place] [address], [facility] [address] [place] [phone] * (ABNORMAL) Lipid Panel (with Reflex Direct LDL) (12/24/2022 12:58 PM EDT) CHOLESTEROL, TOTAL 158 <200 mg/dL [facility] HDL CHOLESTEROL 47(L) > OR = 50 mg/dL [facility] TRIGLYCERIDES 93 <150 mg/dL [facility] LDL-CHOLESTEROL 92 99 mg/dL (calc) [facility] Comment: Reference range: <100 Desirable range <100 mg/dL for primary prevention; <70 mg/dL for patients with CHD or diabetic patients with > or = 2 CHD risk factors. LDL-C is now calculated using the William calculation, which is a validated novel method providing better accuracy than the Friedewald equation in the estimation of LDL-C. Sergei SORIA et al. PORSHA. 2013;310(19): 3502-3949 (http://education.Aloqa/faq/LBM924) CHOL/HDLC RATIO 3.4 <5.0 (calc) [facility] NON-HDL CHOLESTEROL 111 <130 mg/dL (calc) [facility] Comment: For patients with diabetes plus 1 major ASCVD risk factor, treating to a non-HDL-C goal of <100 mg/dL (LDL-C of <70 mg/dL) is considered a therapeutic option. Blood Blood / Unknown 12/24/2022 1 2:58 PM EDT 12/24/2022 12:59 PM EDT Narrative [facility] - 12/25/2022 6:10 AM EDT FASTING:UNKNOWN us Fran Escalera MD LAB - BLOOD DRAW Final Resul t [facility] [address] [address], [facility] [address] [place] [address] * CMP (12/24/2022 12:58 PM EDT) GLUCOSE 91 65 - 99 mg/dL [facility] Comment: Fasting reference interval UREA NITROGEN (BUN) 12 7 - 25 mg/dL [facility] CREATININE (blood) 0.70 0.50 - 1.03 mg/dL [facility] EGFR 101 > OR = 60 mL/min/1. 73m2 [facility] BUN/CREATININE RATIO SEE NOTE: [facility] Comment: Not Reported: BUN and Creatinine are within reference range. SODIUM 139 135 - 146 mmol/L [facility] POTASSIUM 4.8 3.5 - 5.3 mmol/L [facility] CHLORIDE 105 98 - 110 mmol/L [facility] CARBON DIOXIDE 30 20 - 32 mmol/L [facility] CALCIUM 9.2 8.6 - 10.4 mg/dL [facility] PROTEIN, TOTAL 7.3 6.1 - 8.1 g/dL [facility] ALBUMIN 3.9 3.6 - 5.1 g/dL [facility] GLOBULIN 3.4 1.9 - 3.7 g/dL (calc) [facility] ALBUMIN/GLOBULI N RATIO 1.1 1.0 - 2.5 (calc) [facility] BILIRUBIN, TOTAL 0.4 0.2 - 1.2 mg/dL [facility] ALKALINE PHOSPHATASE 94 37 - 153 U/L [facility] AST 15 10 - 35 U/L [facility] ALT 12 6 - 29 U/L [facility] Blood Blood / Unknown 12/24/2022 1 2:58 PM EDT 12/24/2022 12:59 PM EDT Narrative [facility] - 12/25/2022 6:10 AM EDT FASTING:UNKNOWN us Fran Escalera MD LAB - BLOOD DRAW Edited Resu lt - Final [facility] [address] [address], [facility] [address] [address] from Last 3 Months or Most Recently Relevant to Health Maintenance Insurance HEALTH SAFETY NET DENTAL MEDICAID HEALTH SAF[employer]Y NET MEDICAID DENTAL Care Teams Eligibility Counselor Relationship Specialty Start Date End Date Fran Escalera MD [address] [place] [id number] PCP - General Internal Medicine 10/06/22
--- OUTSIDE RECORDS SUMMARY | 2025-03-07 18:53 | XMS_ITS | Clinical Summary ---
Author Organization [facility] Address [address] [place] [address] Phone Care Team Providers Care Cleaner Carpet And Upholstery Name Role Phone Fran Escalera MD Primary Care Provider Social History Tobacco Use Types Packs/Day Years Used Date Smoking Tobacco: Never Assessed Education Answer Date Recorded Are you interested in more education? Not on jr e 04/03/2024 Are you concerned about learning? Not on file 04/03/2024 No 04/03/2024 No 04/03/2024 Digital Access Answer Date Recorded No 04/03/2024 No 04/03/2024 Reliable internet access at home? Not on file 04/03/2024 Device with a working camera? Not on file Comments Unknown Sex and Gender Information Value Date Recorded Sex Assigned at Not on file Legal Sex Female 10:06 AM EST Gender Identity Not on file Sexual Orientation Not on file Plan of Treatment Health Maintenance Due Date Last Done Comments Adult Td,Tdap Booster 1966 LIPID PANEL 1966 DEPRESSION SCREENING 1978 SMOKING Hx and SMOKELESS TOB ACCO SCREENING 09/02/1979 HEPATITIS C SCREENING 1984 HIV ONE-TIME SCREENING (18-6 5 YEARS) 1984 PAP SMEAR 09/02/1987 MAMMOGRAM 2006 COLOGUARD 09/02/2011 COLONOSCOPY 09/02/2011 COLORECTAL CANCER SCREENING 09/02/2011 FIT TEST 09/02/2011 FOBT 09/02/2011 SIGMOIDOSCOPY 09/02/2011 VIRTUAL COLONOSCOPY 09/02/2011 PNEUMOCOCCAL VACCINES (50+ y ears) (1 of 1 - PCV) 2016 ZOSTER VACCINES (1 of 2) 2016 INFLUENZA VACCINE (#1) 2024 COVID-19 VACCINE (1 - 2024-2 6 season) 2024 RSV VACCINE (1 - 1-dose 75+ series) 2041 HEPATITIS A VACCINES Aged Out No long er eligible based on patient's age to complete this topic HIB VACCINES Aged Out No longer eligi ble based on patient's age to complete this topic MENINGOCOCCAL VACCINES (ACWY) Aged Out No longer eligible based on patient's age to complete this topic MENINGOCOCCAL VACCINES (B) Aged Out N o longer eligible based on patient's age to complete this topic Medical Devices Not on file Insurance Z2 FULL Z2 [facility] SAFETY NET FULL Member Subscriber Plan / Payer (Ef fective 2024-Present) Name:Jennifer Bill Relation to Subscriber:Self Name:Jennifer Bill Payer ID:Not on file Group ID:Not on file Type:Medicaid Address: [place] [id number] [facility] NET FULL [facility] LIMITED HEALTH SAFETY NET FULL Member Subscriber Plan / Payer (Ef fective 2024-Present) Name:Jennifer Bill Relation to Subscriber:Self Name:Jennifer Bill Payer ID:Not on file Group ID:Not on file Type:Medicaid Address: [place] [id number] [employer] [facility] SAFETY NET FULL [employer] [facility] NET FULL Care Teams Cleaner Carpet And Upholstery Relationship Specialty Start Date End Date Fran Escalera MD [address] [place] [address] PCP - General Internal Medicine 04/03/24 Additional Source Comments The information contained in this document represents components of the legal health record. It is not the complete legal health record.[facility]
--- OUTSIDE RECORDS SUMMARY | 2025-03-07 18:53 | XMS_ITS | Clinical Summary ---
Author Organization [facility] Address [address] [place] [address] Care Team Providers Care Wildlife Technician Name Role Phone Apple Marcum MD Primary Care Provid er Allergies Active Allergy Reactions Criticality Noted Date Comments Diclofenac 10/22/2020 Medications No known medications Active Problems No known active problems Social History Tobacco Use Types Packs/Day Years Used Date Smoking Tobacco: Never Smokeless Tobacco: Never Sex and Gender Information Value Date Recorded Sex Assigned at Female 10/22/2020 4:22 AM EDT Gender Identity Not on file Sexual Orientation Not on file Job Start Date Occupation Industry Not on file Not on file Not on file Last Filed Vital Signs Vital Sign Reading Time Taken Comments Blood Pressure 122/62 10/22/2020 9:50 AM EDT Pulse 77 10/22/2020 9:50 AM EDT Temperature 36.5 C (97.7 F) 10/22/2020 9:50 AM EDT Respiratory Rate 18 10/22/2020 9:50 AM EDT Oxygen Saturation 99% 10/22/2020 9:50 AM EDT Inhaled Oxygen Concentration - - Weight - - Height - - Body Mass Index - - Plan of Treatment Health Maintenance Due Date Last Done Comments Hepatitis B Vaccines (1 of 3 - 3-dose series) 1965 Hepatitis C Screening 1966 Depression Screening 1978 Preventative Health Evaluation 1984 DTap / Tdap / Td (1 - Tdap) 1985 Cervical Cancer Screening (P ap Smear) 09/02/1987 Colon Cancer Screening (Colonoscopy) 09/02/2011 Breast Cancer Screening (Mammogram) 2016 Shingrix-Zoster Vaccine (1 of 2) 2016 COVID-19 Vaccine (2 - 2024-2 6 season) 2024 03/16/2021 Influenza Vaccine (#1) 2024 Pneumococcal Vaccine Aged Out No long er eligible based on patient's age to complete this topic RSV Ped < 20 months Aged Out No longe r eligible based on patient's age to complete this topic Care Teams Wildlife Technician Relationship Specialty Start Date End Date Apple Marcum MD [address] [place] [phone] PCP - General Family Medicine 10/22/20
--- OUTSIDE RECORDS SUMMARY | 2025-03-07 18:53 | XMS_ITS | Clinical Summary ---
Author Organization [facility] Address [address] [place] [address] Care Team Providers Care Baby Nurse Name Role Phone Unknown Primary Care Provider [phone] Allergies Active Allergy Reactions Criticality Noted Date Comments Diclofenac Sodium Hives,Swelling Medium 12/11/2021 Medications magic mouthwash oral suspension (mixture)Indicat ions:Pharyngitis , unspecified etiology Swish and spit 15 mL 4 (four) times a day as needed for mucositis. 1 Bottle 12/11/2021 Active Social History Tobacco Use Types Packs/Day Years Used Date Smoking Tobacco: Never Assessed Comments Unknown Sex and Gender Information Value Date Recorded Sex Assigned at Not on file Legal Sex Female 11:19 AM EDT Gender Identity Not on file Sexual Orientation Not on file Last Filed Vital Signs Vital Sign Reading Time Taken Comments Blood Pressure 141/72 12/11/2021 9:56 AM EDT Pulse 61 12/11/2021 9:56 AM EDT Temperature 37.5 C (99.5 F) 12/11/2021 9:56 AM EDT Respiratory Rate - - Oxygen Saturation 98% 12/11/2021 9:56 AM EDT Inhaled Oxygen Concentration - - Weight 86.2 kg (190 lb) 12/11/2021 9:56 AM EDT Height 159.5 cm (5' 2.8 ) 12/01/2017 9:21 AM EDT Body Mass Index 33.87 12/01/2017 9:21 AM EDT Plan of Treatment Health Maintenance Due Date Last Done Comments Hepatitis C Virus Screening 1965 HIV Screening 09/02/1979 DTaP/Tdap/Td Vaccines (1 - Tdap) 1985 Hepatitis B Vaccines (1 of 3 - 19+ 3-dose series) 1985 Pneumococcal Vaccines 50+ (1 of 1 - PCV) 2016 Zoster (Shingles) Vaccine (1 of 2) 2016 COVID-19 Vaccine (4 - 2024-2 6 season) 2024 03/16/2021, 08/12/2020, 07/20/2020 RSV Vaccine 50 years and old er and Patients (1 - 1-dose 75+ series) 2041 Colonoscopy Discontinued 03/13/2018 Influenza Vaccine Discontinued 01/06/2024, , 05/14/2021 Care Teams Baby Nurse Relationship Specialty Start Date End Date Unknown Unknow Provider Address PCP - General 04/25/21
[2025-03-07 19:19] VITALS: BP 126/60; PULSE 49; RESP 18; TEMP 36.5; O2SAT 99
[2025-03-07 19:48] VITALS: BP 126/60; PULSE 49; RESP 18; TEMP 36.5; O2SAT 99
== END 2025-03-07 19:49 | disposition home or self-care (01) ==
PROVIDERS: Physician Assistant; Emergency Provider Emergency Medicine
DX: S62.605A Fracture of unspecified phalanx of left ring finger, initial encounter for closed fracture (principal); G43.909 Migraine, unspecified, not intractable, without status migrainosus; R07.89 Other chest pain; M79.642 Pain in left hand; R11.0 Nausea; M25.532 Pain in left wrist; R06.02 Shortness of breath; X50.1XXA Overexertion from prolonged static or awkward postures, initial encounter; X50.9XXA Other and unspecified overexertion or strenuous movements or postures, initial encounter; Y93.9 Activity, unspecified; Y92.9 Unspecified place or not applicable; Y99.8 Other external cause status
CPT/HCPCS: 36415; 70450; 71046; 73110; 73130; 80053; 83880; 84484; 85025; 85379; 85610; 85730; 93005; 96361; 96374; 96375; 99285; J1200; J1885; J2405

== ENCOUNTER → 2025-03-07 12:28 | Outpatient (BNV) | payer MEDICAID, SELFPAY | PROVIDERS: Visit Provider Internal Medicine Cardiovascular Disease | DX: R94.31 Abnormal electrocardiogram [ECG] [EKG] (principal); R07.9 Chest pain, unspecified | CPT/HCPCS: 93010 ==

== ENCOUNTER → 2025-03-07 12:44 | Outpatient (BNV) | payer MEDICAID, SELFPAY | PROVIDERS: Visit Provider Radiology Diagnostic Radiology | DX: R51.9 Headache, unspecified (principal); R07.9 Chest pain, unspecified; S62.625A Displaced fracture of middle phalanx of left ring finger, initial encounter for closed fracture; Z04.3 Encounter for examination and observation following other accident | CPT/HCPCS: 70450; 71046; 73110; 73130 ==

== ENCOUNTER 2025-03-18 08:44 | Outpatient (REF) | payer MEDICAID, OTHER, SELFPAY ==
--- OUTSIDE RECORDS SUMMARY | 2017-07-11 23:00 | XMS_ITS | Encounter Summary ---
Author Organization [facility] Address [address] [place] [address] Care Team Providers Care Glaze Maker Name Role Phone Unavailable Primary Care Provider Unavailabl e Encounter Details Date Type Department Care Team (Latest Contact Info) Description 07/12/2017 Hospital Encounter [facility] Ext Film [address] [place] [address] Encounter for screening mammogram for [...] Visit OBGYN Harpal Villegas [address] [place] [address] Mireya Jones, ORALIA [address] [place], [place] [address] 04/10/2025 9:30 AM EST Appointment [facility] Mamm[facility] - [place] [address] [place] [address] documented as of this encounter [...]
--- OUTSIDE RECORDS SUMMARY | 2017-07-25 23:00 | XMS_ITS | Encounter Summary ---
Author Organization [facility] Address [address] [place] [address] Care Team Providers Care Passport Application Examiner Name Role Phone Unavailable Primary Care Provider Unavailabl e Encounter Details Date Type Department Care Team (Latest Contact Info) Description 07/26/2017 Hospital Encounter [facility] Ext Film [address] [place] [address] Concern about breast cancer in [...] Jones, ORALIA [address] [place] [address] 04/10/2025 9:30 AM EST Appointment [facility] Mammography Harpal Villegas [address] [place] [address] documented as of this encounter [...]
--- OUTSIDE RECORDS SUMMARY | 2017-07-25 23:05 | XMS_ITS | Encounter Summary ---
Author Organization [facility] Address [address] [place] [address] Care Team Providers Care Sales Trainer Name Role Phone Unavailable Primary Care Provider Unavailabl e Encounter Details Date Type Department Care Team (Latest Contact Info) Description 07/26/2017 12:05 AM EDT Hospital Encounter [facility] Ext Film [address] [place] [address] Concern about breast cancer in [...] Office Visit OBGYN Harpal [place]legas [address] [place] [phone] Mireya Jones, ORALIA [address] [facility] [address] [place] [address] 04/10/2025 9:30 AM EST Appointment [facility] Harpal Villegas [address] [place] [address] documented as of this encounter Procedures Procedure Name Priority Date/Time Associated Diagnosis Comments US BREAST LIMITED LEFT Routine 07/26/2017 2:25 PM EDT Concern about breast cancer in female without diagnosis documented in this encounter Results * US Breast Limited Left (07/26/2017 2:25 PM EDT) Narrative MARSHAFERCHOCS_AF - 05/04/2024 2:25 PM EST This order has been auto-finalized and does not contain a result. us Mireya Jones NP IMG US PROCEDURES Final Result RISPACS_AF documented in this encounter Visit Diagnoses Diagnosis Concern about breast cancer in female without diagnosis documented in this encounter
--- OUTSIDE RECORDS SUMMARY | 2017-07-31 23:00 | XMS_ITS | Encounter Summary ---
Author Organization [facility] Address [address] [place] [address] Care Team Providers Care Compress Trucker Name Role Phone Unavailable Primary Care Provider Unavailabl e Encounter Details Date Type Department Care Team (Latest Contact Info) Description 08/01/2017 Hospital Encounter [facility] Ext Film [address] [place] [address] Concern about breast cancer in [...] Visit OBGYN Harpal Villegas [address] [place] [address] Mireya Jones NP [address] [place] [address] 04/10/2025 9:30 AM EST Appointment [facility] Mammography Harpal [place] [address] [place] [address] documented as of this encounter Procedures Procedure Name Priority Date/Time Associated Diagnosis Comments MG STEREO PLCMNT BREAST LOC DEV 1ST LES LEFT Routine 08/01/2017 2:26 PM EDT Concern about breast cancer in female without diagnosis documented in this encounter Results * MG Stereo Plcmnt Breast Wire Loc Dev 1st Lesion Left (08/01/2017 2:26 PM EDT) Narrative SCOTTIE_AF - 05/04/2024 2:26 PM EST This order has been auto-finalized and does not contain a result. Miryea Jones NP IMG BI PROCEDURES Final Result RISPACS_AF documented in this encounter Visit Diagnoses Diagnosis Concern about breast cancer in female without diagnosis documented in this encounter
--- NOTE | ~2025-03-18 | XR_ITS ---
EXAMINATION: XR HAND 3 OR MORE VIEWS LEFT HISTORY: M79.642 - Pain in left hand COMPARISON: Comparison is made with the prior examination dated 03/07/2025. FINDINGS: Three views of the left hand are submitted. Osseous mineralization is normal. There are minimally displaced fractures of the palmar aspects of the bases of the 3rd and 4th middle phalanges without change. There is no dislocation. The joint spaces are preserved. The soft tissues are unremarkable. XR/XR hand LT min 3V IMPRESSION: Minimally displaced fractures of the palmar aspects of the bases of the 3rd and 4th middle phalanges. Electronically signed by: Michael Sharma MD 03/18/2025 10:57 AM [facility]
--- OUTSIDE RECORDS SUMMARY | 2025-03-19 09:07 | XMS_ITS | Clinical Summary ---
Author Organization [facility] Address [address] [place] [address] Phone Care Team Providers Care Buttonhole Facer Name Role Phone Fran Escalera MD Primary [...] topic Medical Devices Not on file Insurance * Guarantor: Jennifer Bill Account Type Relation to Patient Date of Phone Billing Address Personal/Family Self [address] [place] [address] [employer] FULL * Guarantor: Jennifer Bill Account Type Relation to Patient Date of Phone Billing Address Personal/Family Self [address] [place] [address] [employer] [facility] SAFETY NET FULL Member Subscriber Plan / Payer (Ef fective 2024-Present) Name:Jennifer Bill Relation to Subscriber:Self Name:Jennifer Bill Payer ID:Not on file Group ID:Not on file Type:Medicaid Address: [place] [id number] [facility] NET F[facility] FULL Member Subscriber Plan / Payer (Ef fective 2024-Present) Name:Jennifer Bill Relation to Subscriber:Self Name:Jennifer Bill Payer ID:Not on file Group ID:Not on file Type:Medicaid Address: [place] [id number] * Guarantor: Jennifer Bill Account Type Relation to Patient Date of Phone Billing Address Personal/Family Self [address] [place] [address] [employer] [facility] SAFET[facility] NET FULL [employer] [facility] NET FULL Care Teams Buttonhole Facer Relationship Specialty Start Date End Date Fran Escalera MD [address] [place] [address] PCP - General Internal Medicine 04/03/24 Additional Source Comments The information contained in this document represents components of the legal health record. It is not the complete legal health record.[facility]
--- OUTSIDE RECORDS SUMMARY | 2025-03-19 09:07 | XMS_ITS | Clinical Summary ---
Author Organization [facility] Address [address] [place] [address] Care Team Providers Care Acetylene Torch Solderer Name Role Phone Apple Marcum MD Primary [...] age to complete this topic Care Teams Acetylene Torch Solderer Relationship Specialty Start Date End Date pAple Marcum MD [address] [place] [phone] PCP - General Family Medicine 10/22/20
--- OUTSIDE RECORDS SUMMARY | 2025-03-19 09:07 | XMS_ITS | Clinical Summary ---
Author Organization [facility] Address [address] [place] [address] Care Team Providers Care Publications Writer Name Role Phone Unknown Primary Care Provider [...] Vaccine Discontinued 01/06/2024, , 05/14/2021 Care Teams Publications Writer Relationship Specialty Start Date End Date Unknown Unknow Provider Address PCP - General 04/25/21
--- OUTSIDE RECORDS SUMMARY | 2025-03-19 09:07 | XMS_ITS | Clinical Summary ---
Author Organization [address] [facility] [address] [facility] Address [address] [facility] [place] [address] Phone Care Team Providers Care Community Relations Police Lieutenant Name Role Phone Apple Marcum MD Primary [...] Office Visit [facility] [place] [address] [place] [address] Mireya Jones NP [address] [place] [address] 04/10/2025 9:[address] [facility] [address] [place] [phone] Health Maintenance Due Date Last Done Comments [...] density per current federal guidelines. Exam Location: [facility], [address] [place] [address], [facility], . Report reviewed and signed by : Dr. Juan Hernandez on 05/01/2024 8:16 AM. Workstation Name - [id number] -------- FINAL REPORT -------- Dictated By: Juan Hernandez Dictated Date: 05/01/2024 08:11 ET Assigned Physician: Juan Hernandez Reviewed and Electronically Signed By: Juan Hernandez Signed Date: 05/01/2024 08:16 ET Workstation ID: [id number] Transcribed By: Self Edit Transcribed Date: 05/01/2024 [...] breastdensity per current federal guidelines. Exam Location: [facility], [address] [place] [address], [facility], . Report reviewed and signed by : Dr. Juan Hernandez on 05/01/2024 8:16 AM.Workstation Name - [id number] -------- FINAL REPORT -------- Dictated By: Juan Hernandez Dictated Date: 05/01/2024 08:11 ET Assigned Physician: Juan Hernandez Reviewed and Electronically Signed By: Juan Hernandez Signed Date: 05/01/2024 08:16 ET Workstation ID: [id number] Transcribed By: Self Edit Transcribed Date: 05/01/2024 08:11 ET us Mireya Jones NP IMG BI PROCEDURES Final Result from Last 3 Months or Most Recently Relevant to Health Maintenance [place] [place] [address] Care Teams Community Relations Police Lieutenant Relationship Specialty Start Date End Date Apple Marcum MD [address] [place] [address] PCP - General Family Medicine 10/22/20
--- OUTSIDE RECORDS SUMMARY | 2025-03-19 09:07 | XMS_ITS | Encounter Summary ---
Author Organization [facility] Address [address] [place] [address] Care Team Providers Care Community Recreation Programmer Name Role Phone Unknown Primary Care Provider [phone] Encounter Details Date Type Department Care Team (Late st Contact Info) Description 10/22/2020 Scanned Document [facility] EMERGENCY MED SCAN Emergency Medicine, Scan [...] on filedocumented in this encounter Care Teams Community Recreation Programmer Relationship Specialty Start Date End Date Unknown Unknow Provider Address PCP - General 04/25/21 documented as of this encounter
== END 2025-03-18 08:45 | disposition home or self-care (01) ==
LOC: HO.HOSX 08:44
DX: S62.625A Displaced fracture of middle phalanx of left ring finger, initial encounter for closed fracture (principal); S62.623A Displaced fracture of middle phalanx of left middle finger, initial encounter for closed fracture; W01.198A Fall on same level from slipping, tripping and stumbling with subsequent striking against other object, initial encounter
CPT/HCPCS: 73130; 99212

== ENCOUNTER 2025-03-18 09:22 | Outpatient (AMB) | payer MEDICAID, SELFPAY ==
--- OUTSIDE RECORDS SUMMARY | 2017-07-11 23:00 | XMS_ITS | Encounter Summary ---
Author Organization [facility] Address [address] [place] [address] Care Team Providers Care Process Engineering Manager Name Role Phone Unavailable Primary Care Provider Unavailabl e Encounter Details Date Type Department Care Team (Latest Contact Info) Description 07/12/2017 Hospital Encounter [facility] Ext Film [address] [place] [address] Encounter for screening mammogram for [...] Visit OBGYN Harpal Villegas [address] [place] [address] Mireya Jones, ORALIA [address] [place], [place] [address] 04/10/2025 9:30 AM EST Appointment [facility] Mammography - [place] [address] [place] [address] documented as of this encounter [...]
--- OUTSIDE RECORDS SUMMARY | 2017-07-25 23:00 | XMS_ITS | Encounter Summary ---
Author Organization [facility] Address [address] [place] [address] Care Team Providers Care Gel Coater Name Role Phone Unavailable Primary Care Provider Unavailabl e Encounter Details Date Type Department Care Team (Latest Contact Info) Description 07/26/2017 Hospital Encounter [facility] Ext Film [address] [place] [address] Concern about breast cancer in [...] Visit OBGYN Harpal Villegas [address] [place] [address] Mireya Jones, ORALIA [address] [place] [address] 04/10/2025 9:30 AM EST Appointment [facility] Mammography Harpal Villegas [address] [place] [address] documented as of this encounter [...]
--- OUTSIDE RECORDS SUMMARY | 2017-07-25 23:05 | XMS_ITS | Encounter Summary ---
Author Organization [facility] Address [address] [place] [address] Care Team Providers Care Burnisher And Bumper Name Role Phone Unavailable Primary Care Provider Unavailabl e Encounter Details Date Type Department Care Team (Latest Contact Info) Description 07/26/2017 12:05 AM EDT Hospital Encounter [facility] Ext Film [address] [place] [address] Concern about breast cancer in [...] Visit OBGYN Harpal [place]leg[place] [address] [place] [phone] Mireya Jones, ORALIA [address] [facility] [address] [place] [address] 04/10/2025 9:30 AM EST Appointment [facility] Harpal Villegas [address] [place] [address] documented as of this encounter [...]
--- OUTSIDE RECORDS SUMMARY | 2017-07-31 23:00 | XMS_ITS | Encounter Summary ---
Author Organization [facility] Address [address] [place] [address] Care Team Providers Care Contract Assistant Name Role Phone Unavailable Primary Care Provider Unavailabl e Encounter Details Date Type Department Care Team (Latest Contact Info) Description 08/01/2017 Hospital Encounter [facility] Ext Film [address] [place] [address] Concern about breast cancer in [...] Visit OBGYN Harpal Villegas [address] [place] [address] Mireya Jones NP [address] [place] [address] 04/10/2025 9:30 AM EST Appointment [facility] Mammography Harpal Villegas [address] [place] [address] documented as of this encounter [...]
--- NOTE | 2025-03-18 09:38 | MHC.OFFVIS ---
Vital Signs 03/18/25 09:39 Height 5 ft 9.29 in Weight 206 lb BMI 30.2 Intake Visit Reasons: FC:LT RF Middle Phalanx Fx, DOI ~ 03/02/25 Intake Note: Jennifer is a 59 year old right hand dominant female who presents today for a Fracture Care visit status post Left Ring Middle Phalanx Fracture, DOI: 03/02/25. Patient presented to [facility] on 03/07/25 reporting she had taken a fall, landing on a rock. At the ED patient was advised to continue use of a finger splint she was already using. Today, patient compais of left ring finger pain on the ulnar aspect of the finger. She has been using a finger splint. She does report some tingling on the volar aspect of her left ring finger. She is taking Tylenol and Ibuprofen with some relief. She denies any new injuries or surgeries to her left hand. Marketing Project Manager Required: Yes Marketing Project Manager Language: Catalyst Plant Supervisor Name: [id number] Henok Allergies diclofenac Allergy (Verified 03/18/25 09:39) Hives HPI HPI FC:LT RF Middle Phalanx Fx, DOI ~ 03/02/25: Details: Jennifer is a 59 year old right hand dominant female who presents today for a Fracture Care visit status post Left Ring Middle Phalanx Fracture, DOI: 03/02/25. Patient presented to [facility] on 03/07/25 reporting she had taken a fall, landing on a rock. At the ED patient was advised to continue use of a finger splint she was already using on the left ring finger, but was not provided with any immobilization for the left middle finger.. Today, patient complains of left ring finger pain on the volar aspect of the finger, primarily at the level of the PIP joint, as well as pain in the same area of the left middle finger. She has been using a finger splint. She does report some tingling on the volar aspect of her left ring finger. She is taking Tylenol and Ibuprofen with some relief. She denies any new injuries or surgeries to her left hand. [facility] Surgical History (Updated 03/18/25 @ 09:43 by JOSE Dimas) History of appendectomy Social History (Updated 03/18/25 @ 09:42 by JOSE Dimas) Alcohol intake: never Patient Tobacco Use Status: Never used Tobacco Current occupational status: employed Current occupation: [employer], rt handed Review of Systems Const All systems reviewed & are unremarkable except as noted in HPI and below Physical Exam Vital Signs: BMI result Body Mass Index 30.2 Extrem Other: Patient is alert, oriented, and in no acute distress. Neuro: Normal sensation of the tips of all digits of the left hand at this time Vascular: Cap refill brisk Pain: Tenderness to palpation noted of the volar PIP joints of the left middle and ring fingers Some discomfort associated with can closed fist with the left hand at the PIP joints of the left middle and ring fingers ROM: With encouragement, patient is able to make a closed fist and extend all digits of the left hand fully Skin: No lacerations or abrasions. General: Mild swelling noted on the volar aspect of the left middle and ring fingers at the level of the PIP joint and middle phalanx No ecchymosis, erythema, or evidence of infection. Psych: Appears grossly normal Affect normal Attitude cooperative Office Procedures AMB Fracture Care Fracture Billing Code: Fracture Billing Code Results Reviewed Results Reviewed: X-rays obtained in the office today and independently reviewed by me, Emile Romero PA-C, demonstrate minimally displaced middle phalanx base avulsion fractures of the left middle and ring fingers. Assessment & Plan Assessment & Plan (1) Closed fracture of middle phalanx of left ring finger: Code(s): S62.625A - Displaced fracture of middle phalanx of left ring finger, initial encounter for closed fracture Category: Medical (2) Fracture of middle phalanx of left middle finger: Code(s): S62.623A - Displaced fracture of middle phalanx of left middle finger, initial encounter for closed fracture Category: Medical Plan 1. Left middle finger middle phalanx avulsion fracture 2. Left ring finger middle phalanx avulsion fracture Date of injury 03/02/2025 Patient is educated about this condition Patient is educated about the typical treatment and recovery course At this time, patient is advised that she should marycruz tape the middle and ring fingers of the left hand together with daytime activities to act as a moving splint for both fractures No further immobilization indicated at this time Patient is advised she can return to work with a 2 lb weight limit in the left hand until follow-up Patient understands this and is amenable to this plan Follow-up in 4 weeks with repeat x-rays for reassessment, sooner with any acute concerns Orders: Orders XR hand LT min 3V Today M79.642 - Pain in left hand Coding Level of Care Code New Pt Level 3 (97872) Diagnoses Closed fracture of middle phalanx of left ring finger S62.625A Fracture of middle phalanx of left middle finger S62.623A CPT Codes Fracture Care - Fracture Billing Code: Fracture Billing Code ([id number])
[2025-03-18 09:39] VITALS: BMI 30.2
--- OUTSIDE RECORDS SUMMARY | 2025-03-18 10:34 | XMS_ITS | Encounter Summary ---
Author Organization [facility] Address [address] [place] [address] Care Team Providers Care Shooter'S Helper Name Role Phone Unknown Primary Care Provider [phone] Encounter Details Date Type Department Care Team (Late st Contact Info) Description 10/22/2020 Scanned Document [facility] EMERGENCY MED SCAN Emergency Medicine, Scan Social [...] on filedocumented in this encounter Care Teams Shooter'S Helper Relationship Specialty Start Date End Date Unknown Unknow Provider Address PCP - General 04/25/21 documented as of this encounter
--- OUTSIDE RECORDS SUMMARY | 2025-03-18 10:34 | XMS_ITS | Clinical Summary ---
Author Organization [facility] Address [address] [place] [address] Care Team Providers Care Inside Sales Recruiter Name Role Phone Apple Marcum MD Primary [...] age to complete this topic Care Teams Inside Sales Recruiter Relationship Specialty Start Date End Date Apple Marcum MD [address] [place] [phone] PCP - General Family Medicine 10/22/20
--- OUTSIDE RECORDS SUMMARY | 2025-03-18 10:34 | XMS_ITS | Clinical Summary ---
Author Organization [address] [facility] [address] [facility] [address] [facility] Address [address] [place] [address] Phone Care Team Providers Care Disability Examiner Name Role Phone Apple Marcum MD Primary [...] Office Visit [facility] [place] [address] [place] [address] Mireya Jones NP [address] [place] [address] 04/10/2025 9:30 AM EST [facility] [address] [place] [phone] Health Maintenance Due Date Last Done Comments [...] density per current federal guidelines. Exam Location: [facility], [address] [place] [address], [facility], . Report reviewed and signed by : Dr. Juan Hernandez on 05/01/2024 8:16 AM. Workstation Name - [id number] -------- FINAL REPORT -------- Dictated By: Juan Hernandez Dictated Date: 05/01/2024 08:11 ET Assigned Physician: Juan Hernandez Reviewed and Electronically Signed By: Juan Hernandez Signed Date: 05/01/2024 08:16 ET Workstation ID: [id number] Transcribed By: Self Edit Transcribed Date: 05/01/2024 [...] breastdensity per current federal guidelines. Exam Location: [facility], [address] [place] [address], [facility], . Report reviewed and signed by : Dr. Juan Hernandez on 05/01/2024 8:16 AM.Workstation Name - [id number] -------- FINAL REPORT -------- Dictated By: Juan Hernandez Dictated Date: 05/01/2024 08:11 ET Assigned Physician: Juan Hernandez Reviewed and Electronically Signed By: Juan Hernandez Signed Date: 05/01/2024 08:16 ET Workstation ID: [id number] Transcribed By: Self Edit Transcribed Date: 05/01/2024 08:11 ET us Mireya Jones NP IMG BI PROCEDURES Final Result from Last 3 Months or Most Recently Relevant to Health Maintenance [place] [address] [place] [address] Care Teams Disability Examiner Relationship Specialty Start Date End Date Apple Marcum MD [address] [place] [address] PCP - General Family Medicine 10/22/20
--- OUTSIDE RECORDS SUMMARY | 2025-03-18 10:35 | XMS_ITS | Clinical Summary ---
Author Organization [facility] Address [address] [place] [address] Phone Care Team Providers Care Sinker Puller Name Role Phone Fran Escalera MD Primary [...] topic Medical Devices Not on file Insurance [employer] FULL [employer] [facility] SAF[facility] NET FULL Member Subscriber Plan / Payer (Ef fective 2024-Present) Name:Jennifer Bill Relation to Subscriber:Self Name:Jennifer Bill Payer ID:Not on file Group ID:Not on file Type:Medicaid Address: [place] [id number] [facility] NET FULL [facility] NET FULL Member Subscriber Plan / Payer (Ef fective 2024-Present) Name:Jennifer Bill Relation to Subscriber:Self Name:Jennifer Bill Payer ID:Not on file Group ID:Not on file Type:Medicaid Address: [place] [id number] [employer] [facility] SAF[facility] NET FULL [employer] [facility] NET FULL Care Teams Sinker Puller Relationship Specialty Start Date End Date Fran Escalera MD [address] [place] [address] PCP - General Internal Medicine 04/03/24 Additional Source Comments The information contained in this document represents components of the legal health record. It is not the complete legal health record.[facility]
--- OUTSIDE RECORDS SUMMARY | 2025-03-18 10:35 | XMS_ITS | Clinical Summary ---
Author Organization [facility] Address [address] [place] [address] Care Team Providers Care Cashier Supervisor Name Role Phone Unknown Primary Care Provider [...] Vaccine Discontinued 01/06/2024, , 05/14/2021 Care Teams Cashier Supervisor Relationship Specialty Start Date End Date Unknown Unknow Provider Address PCP - General 04/25/21
== END 2025-03-18 10:14 | disposition home or self-care (01) ==
LOC: HO.HOS 09:23
DX: S62.625A Displaced fracture of middle phalanx of left ring finger, initial encounter for closed fracture (principal); S62.623A Displaced fracture of middle phalanx of left middle finger, initial encounter for closed fracture
CPT/HCPCS: 99203

== ENCOUNTER → 2025-03-18 09:25 | Outpatient (BNV) | payer MEDICAID, SELFPAY | PROVIDERS: Visit Provider Radiology Diagnostic Radiology | DX: M79.642 Pain in left hand (principal) | CPT/HCPCS: 73130 ==

== ENCOUNTER 2025-04-15 08:28 | Outpatient (REF) | payer MEDICAID, SELFPAY ==
--- OUTSIDE RECORDS SUMMARY | 2017-07-11 23:00 | XMS_ITS | Encounter Summary ---
[facility] Organization [facility] Address [address] [place] [address] Care Team Providers Care Manager Advanced Name Role Phone Unavailable Primary Care Provider Unavailabl e Encounter Details Date Type Department Care Team (Latest Contact Info) Description 07/12/2017 Hospital Encounter [facility] Ext Film [address] [place] [address] Encounter for screening mammogram for malignant neoplasm of breast Social History Tobacco Use Types Packs/Day Years Used Date Smoking Tobacco: Never Smokeless Tobacco: Never Alcohol Use Standard Drinks/Week Comments Never 0 (1 standard drink = 0.6 oz pur e alcohol) Housing Instability Answer Date Recorde d Are you worried that in the next 2 months you may not have stable housing? No 04/07/2025 Food Access & Nutrition Answer Date Rec orded Do you have access to a vari ety of food including fruits and vegetables? Yes 04/07/2025 Access to Healthcare Answer Date Record ed Within the last 3 months, ho w many times did you visit the emergency department for your medical care? 1 04/07/2025 Health Literacy Answer Date Recorded How often do you need to hav e someone help you when you read instructions, pamphlets, or other written material from your doctor or pharmacy? Sometimes 04/07/2025 Caregiver: How often do you need to have someone help you when you read instructions, pamphlets, or other written material from your doctor or pharmacy? Not on file 04/07/2025 Financial Risk Answer Date Recorded How hard is it for you to pa y for the very basics like food, housing, medical care, and air conditioning / heating? Not very hard 04/07/2025 Transportation Answer Date Recorded Has the lack of transportati on kept you from meetings, work, or from getting things needed for daily living? No Has the lack of transportati on kept you from medical appointments or from getting medications? No 04/07/2025 Social Isolation Answer Date Recorded How often do you feel lonely or isolated from th ose around you? Never 04/07/2025 Food Risk Answer Date Recorded Within the past 12 months we worried whether our food would run out before we got money to buy more. Sometimes true 025 Within the past 12 months th e food we bought just didn't last and we didn't have money to get more. Sometimes true 04/07/2025 Dependent Care Answer Date Recorded Do you need help finding or paying for care for your loved ones. For example, ocular care aide or elderly care for an older adult? No 04/07/2025 Education Answer Date Recorded Do you think completing more education or training, like finishing a GED, going to college, or learning a trade, would be helpful for you? N/A 04/07/2025 Employment and Income Answer Date Recor ded During the last four weeks, have you been actively looking for work? No 04/07/2025 Living Situation Answer Date Recorded What is your living situation? Unrecognized valu e 04/07/2025 Comments No Sex and Gender Information Value Date Recorded Sex Assigned at Female 04/05/2024 8:11 AM EST Legal Sex Female 5:07 PM EST Gender Identity Female 04/05/2024 8:11 AM EST Sexual Orientation Straight 04/05/2024 8: 11 AM EST documented as of this encounter Plan of Treatment Upcoming Encounters Date Type Department Care Team (Late st Contact Info) Description 05/09/2025 8:30 AM EST Office Visit [facility] - [place] [address] [place] [phone] Mireya Jones, ORALIA [address] [place] [id number] documented as of this encounter Procedures Procedure Name Priority Date/Time Associated Diagnosis Comments MG MAMMO DIGITAL SCREENING BILAT Routine 07/12/2017 2:22 PM EDT Encounter for screening mammogram for malignant neoplasm of breast documented in this encounter Results * MG Mammo Digital Screening bilat (07/12/2017 2:22 PM EDT) Narrative [email or web address]_AF - 05/04/2024 2:23 PM EST This order has been auto-finalized and does not contain a result. Mireya Jones NP IMG BI PROCEDURES Final Result RISPACS_AF documented in this encounter Visit Diagnoses Diagnosis Encounter for screening mammogram for malignant neoplasm of breast documented in this encounter
--- OUTSIDE RECORDS SUMMARY | 2017-07-25 23:00 | XMS_ITS | Encounter Summary ---
Author Organization [facility] Address [address] [place] [address] Care Team Providers Care Supervisor Coal Handling Name Role Phone Unavailable Primary Care Provider Unavailabl e Encounter Details Date Type Department Care Team (Latest Contact Info) Description 07/26/2017 Hospital Encounter [facility] Ext Film [address] [place] [address] Concern about breast cancer in [...] care for your loved ones. For example, child protective services social worker or elderly care for an older adult? [...] Description 05/09/2025 8:30 AM EST Office Visit AUST[facility] [place] [address] [place] [phone] Mireya Jones, ORALIA [address] [place] [address] documented as of this encounter Procedures Procedure [...] auto-finalized and does not contain a result. us Mireya Jones NP IMG BI PROCEDURES Final Result RISPACS_AF documented in this encounter Visit Diagnoses Diagnosis Concern about breast cancer in female without diagnosis documented in this encounter
--- OUTSIDE RECORDS SUMMARY | 2017-07-25 23:05 | XMS_ITS | Encounter Summary ---
Author Organization [facility] Address [address] [place] [address] Care Team Providers Care Chemical Operations Specialist Name Role Phone Unavailable Primary Care Provider Unavailabl e Encounter Details Date Type Department Care Team (Latest Contact Info) Description 07/26/2017 12:05 AM EDT Hospital Encounter [facility] Ext Film [address] [place] [address] Concern about breast cancer in [...] care for your loved ones. For example, children's tutor or elderly care for an older adult? [...] Office Visit AUSTYN [place] [address] [place] [phone] Mireya Jones, ORALIA [address] [place] [address] documented as of this encounter Procedures Procedure Name Priority Date/Time Associated Diagnosis Comments US BREAST LIMITED LEFT Routine 07/26/2017 2:25 PM EDT Concern about breast cancer in female without diagnosis documented in this encounter Results * US Breast Limited Left (07/26/2017 2:25 PM EDT) Narrative MARSHAFERCHONILTON_AF - 05/04/2024 2:25 PM EST This order has been auto-finalized and does not contain a result. us Mireya Jones NP IMG US PROCEDURES Final Result RISPACS_AF documented in this encounter Visit Diagnoses Diagnosis Concern about breast cancer in female without diagnosis documented in this encounter
--- OUTSIDE RECORDS SUMMARY | 2017-07-31 23:00 | XMS_ITS | Encounter Summary ---
Author Organization [facility] Address [address] [place] [address] Care Team Providers Care Art Critic Name Role Phone Unavailable Primary Care Provider Unavailabl e Encounter Details Date Type Department Care Team (Latest Contact Info) Description 08/01/2017 Hospital Encounter [facility] Ext Film [address] [place] [address] Concern about breast cancer in [...] for your loved ones. For example, child care cook or elderly care for an older adult? [...] Office Visit [facility] [place] [address] [place] [phone] Mireya Jones, ORALIA [address] [place] [address] documented as of this encounter Procedures Procedure [...]
--- OUTSIDE RECORDS SUMMARY | 2025-04-10 09:13 | XMS_ITS | Encounter Summary ---
Author Organization [facility] Address [address] [place] [address] Care Team Providers Care Window And Door Installer Name Role Phone Apple Marcum MD Primary Care P [facility] Reason for Referral * Imaging (Routine) - Closed Specialty Diagnoses / Procedures Referred By Jose dailey Referred To Contact Radiology Diagnoses Breast cancer screening by mammogram Procedures MG Mammo Digital Screening w Mireya Mckeon NP [address] [place] [address] Phone: tel: fax: [facility] [place] Referral ID Status Reason Start Date Expiration Date Visits Re quested Visits Authorized [id number] Closed 02/27/2025 02/27/2026 1 1 Reason for Visit * Imaging (Routine) - Closed Specialty Diagnoses / Procedures Referred By Jose dailey Referred To Contact Radiology Diagnoses Breast cancer screening by mammogram Procedures MG Mammo Digital Screening w Mireya Mckeon NP [address] [place] [address] Phone: tel: fax: [facility] [place] Referral ID Status Reason Start Date Expiration Date Visits Re quested Visits Authorized [id number] Closed 02/27/2025 02/27/2026 1 1 Encounter Details Date Type Department Care Team (Latest Contact Info) Description 04/10/2025 9:13 AM EST - 04/10/2025 11:59 PM EST Hospital Encounter [facility] Mammography - [place] [address] [place] [phone] Breast cancer screening by mammogram Discharge Disposition: Home or Self Care Social History Tobacco Use Types Packs/Day Years [...] care for your loved ones. For example, school childcare attendant or elderly care for an older adult? [...] AM EST documented as of this encounter Last Filed Vital Signs Vital Sign Reading Time Taken Comments Blood Pressure - - Pulse - - Temperature - - Respiratory Rate - - Oxygen Saturation - - Inhaled Oxygen Concentration - - Weight 93 kg (205 lb) 04/10/2025 9:20 AM EST Height 165.1 cm (5' 5 ) 04/10/2025 9:20 AM EST Body Mass Index 34.11 04/10/2025 9:20 AM EST documented in this encounter Discharge Disposition Disposition Code Departure Means Destination Home or Self Care documented in this encounter Plan of Treatment Upcoming Encounters Date Type Department Care Team (Late st Contact Info) Description 05/09/2025 8:30 AM EST Office Visit OBGYN - [place] [address] [place] [phone] Mireya Jones, ORALIA [address] [facility] [address] [place] [address] documented as of this encounter Procedures Procedure Name Priority Date/Time Associated Diagnosis Comments MG MAMMO DIGITAL SCREENING W CHELY BILAT Routine 04/10/2025 9:36 AM EST Breast cancer screening by mammogram documented in this encounter Results * MG Mammo Digital Screening w Chely bilat (04/10/2025 9:36 AM EST) Anatomical Region Laterality Modality Breast Bilateral Mammography 04/11/2025 10:0 0 AM EST Impressions 04/11/2025 10:02 AM EST No mammographic evidence of malignancy. BI-RADS CATEGORY: 2 - BENIGN RECOMMENDATION: Screening bilateral mammogram is recommended in 1 year. The patient will receive a lay summary regarding their personal breast density per current federal guidelines. Exam Location: [facility]ography, [address], [place], [address], . -------- FINAL REPORT -------- Dictated By: Veena Proctor Dictated Date: 04/11/2025 10:00 ET Assigned Physician: Veena Proctor Reviewed and Electronically Signed By: Veena Proctor Signed Date: 04/11/2025 10:02 ET Workstation ID: [id number] Transcribed By: Self Edit Transcribed Date: 04/11/2025 10:00 ET Narrative 04/11/2025 10:02 AM EST EXAM: MG MAMMO DIGITAL SCREENING W CHELY BILAT EXAM DATE: 04/10/2025 9:17 AM HISTORY: Avg risk (<15% lifetime) for breast cancer, breasts not dense breasr cancer screening by mammogram COMPARISON: 04/05/2024 TECHNIQUE: Bilateral digital mammography using tomosynthesis technique was performed in the standard CC and MLO projections. Computer-aided detection was utilized in the interpretation of this examination. TISSUE DENSITY: B - There are scattered areas of fibroglandular density. FINDINGS: There is a stable biopsy marker clip in the left breast. No suspicious masses, grouped microcalcifications, or areas of architectural distortion are seen. Procedure Note Veena Proctor MD - 04/11/2025 EXAM: MG MAMMO DIGITAL SCREENING W CHELY BILAT EXAM DATE: 04/10/2025 9:17 AM HISTORY: Avg risk (<15% lifetime) for breast cancer, breasts not dense breasr cancer screening by mammogram COMPARISON: 04/05/2024 TECHNIQUE: Bilateral digital mammography using tomosynthesis technique was performedin the standard CC and MLO projections. Computer-aided detection was utilized in the interpretation of thisexamination. TISSUE DENSITY: B - There are scattered areas of fibroglandular density. FINDINGS: There is a stable biopsy marker clip in the left breast. No suspiciousmasses, grouped microcalcifications, or areas of architectural distortionare seen. IMPRESSION: No mammographic evidence of malignancy. BI-RADS CATEGORY: 2 - BENIGN RECOMMENDATION: Screening bilateral mammogram is recommended in 1 year. The patient will receive a lay summary regarding their personal breastdensity per current federal guidelines. Exam Location: [facility]ography, [address] [place], [place], [address], . -------- FINAL REPORT -------- Dictated By: Veena Proctor Dictated Date: 04/11/2025 10:00 ET Assigned Physician: Veena Proctor Reviewed and Electronically Signed By: Veena Proctor Signed Date: 04/11/2025 10:02 ET Workstation ID: [id number] Transcribed By: Self Edit Transcribed Date: 04/11/2025 10:00 ET Mireya Jones NP IMG BI PROCEDURES Final Result documented in this encounter Visit Diagnoses Diagnosis Breast cancer screening by mammogram documented in this encounter Additional Health Concerns Assessment Noted Time PHQ-9 Depression Total Score: 7 04/07/20 25 10:36 AM EST documented as of this encounter Care Teams Window And Door Installer Relationship Specialty Start Date End Date Apple Marcum MD [address] [place] [address] PCP - General Family Medicine 10/22/20 documented as of this encounter
--- NOTE | ~2025-04-15 | XR_ITS ---
EXAMINATION: XR HAND 3 OR MORE VIEWS LEFT HISTORY: M79.642 - Pain in left hand COMPARISON: Comparison is made with the prior examination dated 03/18/2025. FINDINGS: Three views of the left hand are submitted. Osseous mineralization is normal. Again seen are fractures involving the palmar aspects of the bases of the middle phalanges of the 3rd and 4th fingers. The joint spaces are preserved. The soft tissues are unremarkable. XR/XR hand LT min 3V IMPRESSION: Fractures involving the palmar aspects of the bases of the middle phalanges of the 3rd and 4th fingers without significant change. Electronically signed by: Michael Sharma MD 04/15/2025 09:50 AM EST
--- OUTSIDE RECORDS SUMMARY | 2025-04-15 08:39 | XMS_ITS | Encounter Summary ---
Author Organization [facility] Address [address] [place] [address] Care Team Providers Care Food Service Director Name Role Phone Apple Marucm MD Primary Care P rovider Encounter Details Date Type Department Care Team (Late st Contact Info) Description 04/11/2025 Results Follow-Up [facility] [place] [address] [place] [phone] Mireya Jones, ORALIA [address] [facility] [address] [place], [place] [address] Social History Tobacco Use Types Packs/Day Years [...] for your loved ones. For example, child advocate or elderly care for an older adult? [...] Office Visit [facility] [place] [address] [place] [phone] Mireya Jones NP [address] [place] [address] documented as of this encounter Visit Diagnoses Not on filedocumented in this encounter Additional Health Concerns Assessment Noted Time PHQ-9 Depression Total Score: 7 04/07/20 25 10:36 AM EST documented as of this encounter Care Teams Food Service Director Relationship Specialty Start Date End Date Apple Marcum MD [address] [place] [address] PCP - General Family Medicine 10/22/20 documented as of this encounter
--- OUTSIDE RECORDS SUMMARY | 2025-04-15 08:39 | XMS_ITS | Clinical Summary ---
Author Organization [facility] Prior to 09/22/24 Address [address] [place] [address] Care Team Providers Care Money Order Clerk Name Role Phone Apple Marcum MD Primary [...] (1 of 2) 2016 COVID-19 Vaccine (2 2024-2 6 season) 2024 03/16/2021 Influenza Vaccine (#1) 2024 Pneumococcal Vaccine Aged Out No long er eligible based on patient's age to complete this topic RSV Ped < 20 months Aged Out No longe r eligible based on patient's age to complete this topic Care Teams Money Order Clerk Relationship Specialty Start Date End Date Apple Marcum MD [address] [place] [phone] PCP - General Family Medicine 10/22/20
--- OUTSIDE RECORDS SUMMARY | 2025-04-15 08:40 | XMS_ITS | Clinical Summary ---
Author Organization [address] [place] Address [address] [place] [address] Phone Care Team Providers Care Ep Specialist Name Role Phone Apple Marcum MD Primary [...] wi thout status migrainosus, not intractable 12/24/2022 Encounters Date Type Department Care Team Description 04/11/2025 Results Follow-Up OBGYN - [place] [address] [place] [address] Mireya Jones NP 04/10/2025 9:13 AM EST - 04/10/2025 11:59 PM EST Hospital Encounter [facility] Mammography - [place] [address] [place] [phone] Breast cancer screening by mammogram Discharge Disposition: Home or Self Care from Last 3 Months Immunizations Immunization Administration Dates Next Due HepB-CpG [...] your loved ones. For example, child care coordinator or elderly care for an older adult? [...] Mass Index 34.11 04/10/2025 9:20 AM EST Plan of Treatment Upcoming Encounters Date Type Department Care Team (Late st Contact Info) Description 05/09/2025 8:30 AM EST Office Visit [facility] [place] [address] [facility] [place] [phone] Mireya Jones, [place] [address] [place] [address] Health Maintenance Due Date Last Done Comments Colorectal Cancer Screening: Colonoscopy 1966 Cervical Cancer Screening: Pap Smear 09/02/1987 Pneumococcal Vaccine: 50+ Years (1 of 1 - PCV) 2016 HIV Screening 03/12/2024 COVID-19 Vaccine ( season) 2024 05/18/2024, 06/23/2023, 03/16/2021, Additional history exists Influenza Vaccine (#1) 2024 , 06/23/2023, 05/14/2021 Social Influencers of Health Screening 04/07/2026 04/07/2025 Breast Cancer Screening 04/10/2027 04/10/20, 04/05/2024, 07/26/2017, Additional history exists Cholesterol Screening (Lipid Panel) 12/25/2027 12/24/2022 DTaP,Tdap,and Td Vaccines (2 - Td or Tdap) 12/24/2032 12/24/2022 RSV Immunization Adult Patients (1 - 1-dose 75+ series) 2041 Hepatitis C Screening Completed 12/24/2022 Zoster Vaccines Completed 02/23/2023, 12/24/2022 Hepatitis B Vaccines Completed 06/23/2023, 03/09/20 23 Depression Screening Completed 04/07/2025 HIB Vaccines Aged Out No longer eligi [...] screening by mammogram from Last 3 Months Results * MG Mammo Digital Screening w [...] density per current federal guidelines. Exam Location: [facility] Mammography, [address] [place] [address], [facility], . -------- FINAL REPORT -------- Dictated By: Veena Proctor Dictated Date: 04/11/2025 10:00 ET Assigned Physician: Veena Proctor Reviewed and Electronically Signed By: Veena Proctor Signed Date: 04/11/2025 10:02 ET Workstation ID: [id number] Transcribed By: Self Edit Transcribed Date: 04/11/2025 [...] breastdensity per current federal guidelines. Exam Location: [facility], [address] [place] [address], [facility], . -------- FINAL REPORT -------- Dictated By: Veena Proctor Dictated Date: 04/11/2025 10:00 ET Assigned Physician: Veena Proctor Reviewed and Electronically Signed By: Veena Proctor Signed Date: 04/11/2025 10:02 ET Workstation ID: [id number] Transcribed By: Self Edit Transcribed Date: 04/11/2025 10:00 ET Mireya Jones NP IMG BI PROCEDURES Final Result from Last 3 Months Insurance [facility] Care Teams Ep Specialist Relationship Specialty Start Date End Date Apple Marcum MD [facility] [place], [place] [address] PCP - General Family Medicine 10/22/20
--- OUTSIDE RECORDS SUMMARY | 2025-04-15 08:40 | XMS_ITS | Encounter Summary ---
Author Organization [facility] Address [address] [place] [address] Care Team Providers Care Permaculture Designer Name Role Phone Unknown Primary Care Provider [phone] Encounter Details Date Type Department Care Team (Late st Contact Info) Description 10/22/2020 Scanned Document [facility] Emergency Medicine, Scan Social [...] on filedocumented in this encounter Care Teams Permaculture Designer Relationship Specialty Start Date End Date Unknown Unknow Provider Address PCP - General 04/25/21 documented as of this encounter
--- OUTSIDE RECORDS SUMMARY | 2025-04-15 08:40 | XMS_ITS | Clinical Summary ---
Author Organization [facility] Address [address] [place] [address] Care Team Providers Care Automobile Or Truck Rental Dispatcher Name Role Phone Unknown Primary Care Provider [phone] Allergies Active Allergy Reactions Criticality Noted [...] Vaccine Discontinued 01/06/2024, , 05/14/2021 Care Teams Automobile Or Truck Rental Dispatcher Relationship Specialty Start Date End Date Unknown Unknow Provider Address PCP - General 04/25/21
--- OUTSIDE RECORDS SUMMARY | 2025-04-15 08:40 | XMS_ITS | Clinical Summary ---
Author Organization [facility] Address [address] [place] [address] Phone Care Team Providers Care Nurse Extern Name Role Phone Fran Escalera MD Primary [...] topic Medical Devices Not on file Insurance AppSame FULL [employer] [facility] SAFETY NET FULL Member Subscriber Plan / Payer (Ef fective 2024-Present) Name:Jennifer Bill Relation to Subscriber:Self Name:Jennifer Bill Payer ID:Not on file Group ID:Not on file Type:Medicaid Address: [place] [id number] [facility] NET F[facility] NET FULL Member Subscriber Plan / Payer (Ef fective 2024-Present) Name:Jennifer Bill Relation to Subscriber:Self Name:Jennifer Bill Payer ID:Not on file Group ID:Not on file Type:Medicaid Address: [place] [id number] [employer] [facility] SAFETY NET FULL [employer] [facility] NET FULL Care Teams Nurse Extern Relationship Specialty Start Date End Date Fran Escalera MD [address] [place] [address] PCP - General Internal Medicine 04/03/24 Additional Source Comments The information contained in this document represents components of the legal health record. It is not the complete legal health record.[facility]
== END 2025-04-15 08:29 | disposition home or self-care (01) ==
LOC: HO.HOSX 08:28
DX: S62.625D Displaced fracture of middle phalanx of left ring finger, subsequent encounter for fracture with routine healing (principal); S62.623D Displaced fracture of middle phalanx of left middle finger, subsequent encounter for fracture with routine healing; X58.XXXD Exposure to other specified factors, subsequent encounter
CPT/HCPCS: 73130

== ENCOUNTER 2025-04-15 09:03 | Outpatient (AMB) | payer MEDICAID, SELFPAY ==
--- NOTE | 2025-04-15 09:30 | A.OFFVIS_ITS ---
Intake Visit Reasons: OV-LT RF Middle Phalanx Fx,-w/xrays DOI-03/02/25 Intake Note: Jennifer is a 59 year old right hand dominant female who presents today for a Follow Up Visit status post Left Middle & Ring Middle Phalanx Fracture, DOI: 03/02/25. At her last visit she was advised to marycruz tape the middle and ring f ingers with daytime activities to act as a moving splint for both fractures. She was released to return to work with a 2 lb weight limit until follow-up. At today's visit she states that her left middle finger and her ring finger are still in a lot of pain and she is using the tape. Patient reports that the tape we provided her gave her finger a rash and would like another option. She reports that work is a going okay, no issues to report. Shank Stitcher Required: Yes Shank Stitcher Services: Shank Stitcher Present Shank Stitcher Name: Sobeida [id number] Allergies diclofenac Allergy (Verified 03/18/25 09:39) Hives HPI HPI OV-LT RF Middle Phalanx Fx,-w/xrays DOI-03/02/25: Details: Jennifer is a 59 year old right hand dominant female who presents today for a Follow Up Visit status post Left Middle & Ring Middle Phalanx Fracture, DOI: 03/02/25. At her last visit she was advised to marycruz tape the middle and ring fingers with daytime activities to act as a moving splint for both fractures. She was released to return to work with a 2 lb weight limit until follow-up. At today's visit she states that her left middle finger and her ring finger are still in a fair amount of pain and she is using the tape. Patient reports that the tape we provided her gave her finger a rash and would like another option. She reports that work is a going okay, no issues to report. [facility] Surgical History (Updated 03/18/25 @ 09:43 by JOSE Dimas) History of appendectomy Social History (Updated 03/18/25 @ 09:42 by JOSE Dimas) Alcohol intake: never Patient Tobacco Use Status: Never used Tobacco Current occupational status: employed Current occupation: [employer], rt handed Review of Systems Const All systems reviewed & are unremarkable except as noted in HPI and below Physical Exam Extrem Other: Patient is alert, oriented, and in no acute distress. Neuro: Normal sensation of the tips of all digits of the left hand at this time Vascular: Cap refill brisk Pain: Mild and improved Tenderness to palpation noted of the volar PIP joints of the left middle and ring fingers Some discomfort associated with making closed fist with the left hand at the PIP joints of the left middle and ring fingers ROM: With encouragement, patient is able to make a closed fist and extend all digits of the left hand fully Skin: No lacerations or abrasions. General: Swelling has resolved since previous evaluation No ecchymosis, erythema, or evidence of infection. Psych: Appears grossly normal Affect normal Attitude cooperative Results Reviewed Results Reviewed: X-rays obtained in the office today and independently reviewed by me, Emile Romero PA-C, demonstrate minimally displaced middle phalanx base avulsion fractures of the left middle and ring fingers with some early evidence of interval bony healing. Assessment & Plan Assessment & Plan (1) Closed fracture of middle phalanx of left ring finger: Code(s): S62.625A - Displaced fracture of middle phalanx of left ring finger, initial encounter for closed fracture Category: Medical (2) Fracture of middle phalanx of left middle finger: Code(s): S62.623A - Displaced fracture of middle phalanx of left middle finger, initial encounter for closed fracture Category: Medical Plan 1. Left middle finger middle phalanx avulsion fracture 2. Left ring finger middle phalanx avulsion fracture Date of injury 03/02/2025 Patient is educated about this condition Patient is educated about the typical treatment and recovery course At this time, patient is advised that she should marycruz tape the middle and ring fingers of the left hand together with daytime activities to act as a moving splint for both fractures No further immobilization indicated at this time Patient is advised she can return to work with a 2 lb weight limit in the left hand until follow-up Patient understands this and is amenable to this plan Follow-up in 4 weeks with repeat x-rays for reassessment, sooner with any acute concerns Orders: Orders XR hand LT min 3V Today M79.642 - Pain in left hand Coding Level of Care Code Global (65074) Diagnoses Closed fracture of middle phalanx of left ring finger S62.625A Fracture of middle phalanx of left middle finger S62.623A
== END 2025-04-15 09:59 | disposition home or self-care (01) ==
LOC: HO.HOS 09:04
DX: S62.625A Displaced fracture of middle phalanx of left ring finger, initial encounter for closed fracture (principal); S62.623A Displaced fracture of middle phalanx of left middle finger, initial encounter for closed fracture
CPT/HCPCS: 99213

== ENCOUNTER → 2025-04-15 09:05 | Outpatient (BNV) | payer MEDICAID, SELFPAY | PROVIDERS: Visit Provider Radiology Diagnostic Radiology | DX: S62.623 Displaced fracture of middle phalanx of left middle finger (principal); S62.625G Displaced fracture of middle phalanx of left ring finger, subsequent encounter for fracture with delayed healing | CPT/HCPCS: 73130 ==